=== PATIENT | female | born 1945 | race Caucasian/White ===

== ENCOUNTER 2016-08-26 10:33 | Emergency (ER) | payer MEDICARE, OTHER ==
--- NOTE | 2016-08-26 10:55 | EDM.PDOC ---
ED HPI Trauma - General Chief Complaint: Lower Extremity Injury/Pain Stated Complaint: RIGHT KNEE Time Seen by Provider: 08/26/16 10:39 Source: Reports: Patient History Limitations: Reports: No limitations - History of Present Illness INITIAL COMMENTS - FREE TEXT/NARRATIVE: History of present illness: [] Patient slipped on this no yesterday and landed on her right knee with pain, swelling and bruising. She woke up this morning with worsening pain and is difficult for her to walk. Her right knee has been replaced and she is concerned of potential damage. Patient has mild pain in her left knee and her right shoulder but states she has no difficulty with movement and does not want these extremities x-ray. Review of systems: As per history of present illness and below otherwise all systems reviewed and negative. Past medical history: As per history of present illness and as reviewed below otherwise noncontributory. Surgical history: As per history of present illness and as reviewed below otherwise noncontributory. Social history: No reported history of drug or alcohol abuse. Family history: As per history of present illness and as reviewed below otherwise noncontributory. Physical exam: General: Well developed, well nourished in NAD HEENT: Atraumatic, normocephalic, pupils reactive, negative for conjunctival pallor or scleral icterus, mucous membranes moist, throat clear, neck supple, nontender, trachea midline. Lungs: Clear to auscultation, breath sounds equal bilaterally, chest nontender. Heart: S1S2, regular, negative for clicks, rubs, or JVD. Abdomen: Soft, nondistended, nontender. Negative for masses or hepatosplenomegaly. Negative for costovertebral tenderness. Pelvis: Stable nontender. Genitourinary: Deferred. Rectal: Deferred. Extremities: Ecchymosis over the right knee with swelling. He is able to bend her knee and straighten it spontaneously in bed., negative for cords or calf pain. Neurovascular unremarkable. Neuro: Awake, alert, oriented. Cranial nerves II through XII unremarkable. Cerebellum unremarkable. Motor and sensory unremarkable throughout. Exam nonfocal. Diagnostics: [] X-ray of right knee negative for fracture Therapeutics: [] Patient declined any pain medication Impression: [] Right knee contusion Plan: [] Ice elevate followup PMD as needed Definitive disposition and diagnosis as appropriate pending reevaluation and review of above. Allergies/ADRs: Allergies egg Allergy (Mild, Verified 08/26/16 10:47) Nausea codeine Allergy (Verified 08/26/16 10:47) Rash diazepam [From Valium] Allergy (Verified 08/26/16 10:47) Rash morphine Allergy (Verified 08/26/16 10:47) Agitation Penicillins Allergy (Verified 08/26/16 10:47) Other Home Medications: Ambulatory Orders Omeprazole 40 mg PO DAILY 01/09/14 [Confirmed 08/26/16] Hydrocortisone 10 mg PO QPM 07/23/14 [Confirmed 08/26/16] Hydrocortisone 15 mg PO QAM 07/23/14 [Confirmed 08/26/16] Levothyroxine [Synthroid] 50 mcg PO ACBRK #30 tab 07/25/14 [Confirmed 08/26/16] Propranolol [Inderal] 40 mg PO DAILY 03/14/16 [Confirmed 08/26/16] Past Medical History HEENT History: Reports: None Cardiovascular History: Reports: Hypertension Other Cardiovascular History: hypotension Respiratory History: Reports: None Gastrointestinal History: Reports: None Genitourinary History: Reports: None [employer]IL[employer] History: Reports: Musculoskeletal History: Reports: None Neurological History: Reports: Cerebral aneurysms, Other (see below) Other Neuro History: brain tumor Psychiatric History: Reports: None 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, Hypothyroidism Hematologic History: Reports: None Immunologic History: Reports: None Oncologic (Cancer) History: Reports: Other (see below) Other Oncologic History: brain tumors, treated with radiation Dermatologic History: Reports: None - Infectious Disease History Infectious Disease History: Reports: Chicken pox, Measles, Mumps Other Infectious Disease History: childhood - Past Surgical History Cardiovascular Surgical History: Reports: None GI Surgical History: Reports: Appendectomy Female Surgical History: Reports: Hysterectomy, Other (see below) Other Female Surgeries/Procedures: right kidney removed Endocrine Surgical History: Reports: None Neurological Surgical History: Reports: None Social & Family History - Family History Family Medical History: Noncontributory - Tobacco Use Smoking Status *Q: Former Smoker Years of Tobacco use: 35 Used Tobacco, but Quit: Yes Month Tobacco Last Used: June Second Hand Smoke Exposure: No - Caffeine Use Caffeine Use: Reports: None - Recreational Drug Use Recreational Drug Use: No Review of Systems - Review of Systems Review Of Systems: See Below (See history of present illness) Trauma Exam - Physical Exam Exam: See Below (History of present illness) Course - Vital Signs Last Recorded V/S: Last Vital Signs Temp 37.1 C 08/26/16 10:43 Pulse 78 08/26/16 10:43 Resp 20 08/26/16 10:43 BP 133/68 08/26/16 10:43 Pulse Ox 96 08/26/16 10:43 - Orders/Labs/Meds Orders: Active Orders 24 hr Category Date Time Status Knee 3V Rt [CR] Stat Exams 08/26/16 10:51 Taken Departure - Departure Time of Disposition: 11:28 Disposition: Home, Self-Care 01 Condition: good Clinical Impression: Contusion of right knee Qualifiers: Encounter type: initial encounter Qualified Code(s): S80.01XA - Contusion of right knee, initial encounter Referrals: Gordy Ibarra MD [Primary Care Provider] - Forms: ED Department Discharge Additional Instructions: The following information is given to patients seen in the emergency department who are being discharged to home. This information is to outline your options for follow-up care. We provide all patients seen in our emergency department with a follow-up referral. The need for follow-up, as well as the timing and circumstances, are variable depending upon the specifics of your emergency department visit. If you don't have a primary care physician on staff, we will provide you with a referral. We always advise you to contact your personal physician following an emergency department visit to inform them of the circumstance of the visit and for follow-up with them and/or the need for any referrals to a consulting specialist. The emergency department will also refer you to a specialist when appropriate. This referral assures that you have the opportunity for follow-up care with a specialist. All of these measure are taken in an effort to provide you with optimal care, which includes your follow-up. Under all circumstances we always encourage you to contact your private physician who remains a resource for coordinating your care. When calling for follow-up care, please make the office aware that this follow-up is from your recent emergency room visit. If for any reason you are refused follow-up, please contact the [facility] Emergency Department at and asked to speak to the emergency department charge nurse. Motrin for pain ice and elevate followup her regular physician as needed [facility] [address] [place] [id number] - My Orders Last 24 Hours: My Active Orders 08/26/16 10:51 Knee 3V Rt [CR] Stat - Assessment/Plan Last 24 Hours: My Active Orders 08/26/16 10:51 Knee 3V Rt [CR] Stat
--- NOTE | 2016-08-26 11:31 | CR ---
EXAMINATION: Right knee HISTORY: Pain COMPARISON: None TECHNIQUE: 3 views FINDINGS/IMPRESSION: Right total knee hardware is demonstrated in good position and alignment. No fr acture, dislocation, or joint effusion identified. Bone mineralization appears osteopenic without ev idence of loosening.
[2016-08-26 11:46] VITALS: BP 141/79
== END 2016-08-26 11:42 | disposition home or self-care (01) ==
LOC: MW.ED 10:33
DX: S80.01XA Contusion of right knee, initial encounter (principal); Z88.5 Allergy status to narcotic agent; Z91.012 Allergy to eggs; Z88.0 Allergy status to penicillin; Z79.899 Other long term (current) drug therapy; I10 Essential (primary) hypertension; Z90.49 Acquired absence of other specified parts of digestive tract; Z90.710 Acquired absence of both cervix and uterus; Z87.891 Personal history of nicotine dependence; W18.40XA Slipping, tripping and stumbling without falling, unspecified, initial encounter
CPT/HCPCS: 73562-26-RT; 73562-RT; 99282; 99283

== ENCOUNTER → 2016-10-16 | Outpatient (CLI) | payer MEDICARE, OTHER ==
--- NOTE | 2016-10-16 17:14 | CR ---
EXAMINATION: Left knee HISTORY: Pain COMPARISON: 08/26/2016 TECHNIQUE: PA view FINDINGS/IMPRESSION: There is moderate joint space narrowing within the medial compartment. Osteophy te formation is noted. Bone mineralization appears mildly osteopenic without an acute osseous abnorm ality.
--- NOTE | 2016-10-17 04:32 | MOCE ---
SERVICE DATE: 10/16/2016 PATIENT #: [id number] #: NOT DICTATED CHIEF COMPLAINT: Left knee pain. HISTORY OF PRESENT ILLNESS: Patricia is a 71-year-old female, who is seen today in clinic with complaint of left knee pain. She states she has had a gradual increase in her left knee pain over the past few years. She cannot recall a specific injury. She does have a history of a prior right total knee arthroplasty performed many years ago by Dr. Metzger. She has done well following a right total knee arthroplasty. She has had some conservative treatment, including the use of Tylenol and tramadol on an as needed basis. She does occasionally use a cane or walker for assistance. She has not tried any bracing. She states she will not have any injections into her left knee due to injections in the right knee did not work. She complains of increased pain with activity. She is also having pain at rest. She states that the pain does wake her at night. She denies distal paralysis or paresthesias. PHYSICAL EXAMINATION: GENERAL: This is an alert, overweight female, who is sitting in wheelchair in minimal distress. HEENT: She does have poor dentition. Head is normocephalic, atraumatic. NECK: Supple. CHEST: Showed symmetrical excursions, unlabored. HEART: Regular rate. ABDOMEN: Benign. EXTREMITIES: Left lower extremity shows her to walk with an antalgic gait. She is able to climb on the exam table without assistance. She has no pain with rotation of her left hip. Her motion is symmetric to the contralateral side. She has no significant effusion or malalignment noted along the left knee. She has tenderness along the medial joint line. She has no lateral joint line tenderness. She has full extension with flexion to 110 degrees. She is limited by her soft tissue envelope. She is stable to varus and valgus stressing. She has a negative anterior drawer. Crepitus is noted along the patellofemoral joint. Anterior tib, EHL, gastroc strength is 5/5. Sensation is grossly intact throughout the lower extremity. Dorsalis pedis pulses 2+. IMAGING DATA: X-rays of the left knee were reviewed. This does show evidence of tricompartmental degenerative changes, which were most severe along the medial and patellofemoral joint with near [id number] joint findings. ASSESSMENT: Osteoarthritis, left knee, tricompartmental. PLAN: At this time, treatment options were discussed with the patient. She is presently quite frustrated with her pain and functional level. She has had a trial of conservative treatment, which has not been helpful. She has done well following her right total knee arthroplasty. At this time, I discussed the option of a total knee arthroplasty versus continued conservative treatment. She would like to hold off on surgical intervention unless it is absolutely needed. At this time, I recommended that we try a hinged knee brace to see if we can decrease some of her subjective feelings of instability. The patient [place] of town. She states that neither she nor her are able to drive. This would make it somewhat more difficult to perform a total knee arthroplasty and have her come for physical therapy. The patient would like to consider options. She was not scheduled for a followup appointment. She is advised to return to clinic or call if she has questions or concerns. /[id number]
== END ==
LOC: MW.CHORTHO 07:54
PROVIDERS: ATTEND Orthopaedic Surgery
DX: M25.562 Pain in left knee (principal); M25.762 Osteophyte, left knee; M85.862 Other specified disorders of bone density and structure, left lower leg; M17.12 Unilateral primary osteoarthritis, left knee
CPT/HCPCS: 73560-26-LT; 73560-LT; 99203

== ENCOUNTER 2016-12-18 13:02 | Emergency (ER) | payer MEDICARE, OTHER ==
--- NOTE | 2016-12-18 13:27 | EDM.PDOC ---
ED HPI GENERAL MEDICAL PROBLEM - General Chief Complaint: Back Pain or Injury Stated Complaint: AMBULANCE Time Seen by Provider: 12/18/16 13:18 Source of Information: Reports: Patient History Limitations: Reports: No Limitations - History of Present Illness INITIAL COMMENTS - FREE TEXT/NARRATIVE: History of present illness: [71-year-old female presenting with complaints of back pain. Patient indicates she had fallen a proximally month ago was seen by her PCP but now continues to have chronic low back pain with radiculopathy] Review of systems: As per history of present illness and below otherwise all systems reviewed and negative. Past medical history: As per history of present illness and as reviewed below otherwise noncontributory. Surgical history: As per history of present illness and as reviewed below otherwise noncontributory. Social history: No reported history of drug or alcohol abuse. Family history: As per history of present illness and as reviewed below otherwise noncontributory. Physical exam: HEENT: Atraumatic, normocephalic, pupils reactive, negative for conjunctival pallor or scleral icterus, mucous membranes moist, throat clear, neck supple, nontender, trachea midline. Lungs: Clear to auscultation, breath sounds equal bilaterally, chest nontender. Heart: S1S2, regular, negative for clicks, rubs, or JVD. Abdomen: Soft, nondistended, nontender. Negative for masses or hepatosplenomegaly. Negative for costovertebral tenderness. Pelvis: Stable nontender. Genitourinary: Deferred. Rectal: Deferred. Extremities: Atraumatic, negative for cords or calf pain. Neurovascular unremarkable. Neuro: Awake, alert, oriented. Cranial nerves II through XII unremarkable. Cerebellum unremarkable. Motor and sensory unremarkable throughout. Exam nonfocal. Global assessment is benign save the subjective complaint as noted in the history of present illness. Patient received Toradol in ambulance and has one kidney, and refuses opiates as she does like to make her feel. Diagnostics: [] Therapeutics: [Gabapentin, Norflex] Impression: [Low back pain] Plan: [Norflex and meloxicam] Definitive disposition and diagnosis as appropriate pending reevaluation and review of above. Lower Back Pain Score (Numeric/FACES): 5 - Related Data Allergies Allergy/AdvReac Type Severity Reaction Status Date / Time egg Allergy Mild Nausea Verified 12/18/16 13:10 codeine Allergy Rash Verified 12/18/16 13:10 diazepam [From Valium] Allergy Rash Verified 12/18/16 13:10 morphine Allergy Agitation Verified 12/18/16 13:10 Penicillins Allergy Other Verified 12/18/16 13:10 Home Meds: Home Meds Omeprazole 40 mg PO DAILY 01/09/14 [History] Hydrocortisone 10 mg PO QPM 07/23/14 [History] Hydrocortisone 15 mg PO QAM 07/23/14 [History] Levothyroxine [Synthroid] 50 mcg PO ACBRK #30 tab 07/25/14 [Rx] Propranolol [Inderal] 40 mg PO DAILY 03/14/16 [History] Calcium Carbonate [Calcium] 500 mg PO ASDIRECTED 12/18/16 [History] Meloxicam 7.5 mg PO BID #30 tablet 12/18/16 [Rx] Orphenadrine [Norflex] 100 mg PO BID #28 tab.er 12/18/16 [Rx] Vitamin B Complex 1 each PO DAILY 12/18/16 [History] traMADol HCl [Tramadol HCl] 1 tab PO ASDIRECTED 12/18/16 [History] Past Medical History HEENT History: Reports: None Cardiovascular History: Reports: Hypertension Other Cardiovascular History: hypotension Respiratory History: Reports: None Gastrointestinal History: Reports: None Genitourinary History: Reports: None 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: Musculoskeletal History: Reports: None Neurological History: Reports: Cerebral Aneurysms, Other (See Below) Other Neuro History: brain tumor Psychiatric History: Reports: None 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, Hypothyroidism Hematologic History: Reports: None Immunologic History: Reports: None Oncologic (Cancer) History: Reports: Other (See Below) Other Oncologic History: brain tumors, treated with radiation Dermatologic History: Reports: None - Infectious Disease History Infectious Disease History: Reports: Chicken Pox, Measles, Mumps Other Infectious Disease History: childhood - Past Surgical History Female Surgical History: Reports: Hysterectomy, Other (See Below) Social & Family History - Family History Family Medical History: Noncontributory - Tobacco Use Smoking Status *Q: Former Smoker Years of Tobacco use: 35 Used Tobacco, but Quit: Yes Month Tobacco Last Used: June Second Hand Smoke Exposure: No - Caffeine Use Caffeine Use: Reports: None - Recreational Drug Use Recreational Drug Use: No ED ROS GENERAL - Review of Systems Review Of Systems: See Below (See history of present illness) ED EXAM, GENERAL - Physical Exam Exam: See Below (The history of present illness) Course - Vital Signs Last Recorded V/S: Last Vital Signs Temp 36.4 C 12/18/16 13:14 Pulse 63 12/18/16 14:54 Resp 16 12/18/16 14:54 BP 179/90 H 12/18/16 14:54 Pulse Ox 96 12/18/16 14:54 - Orders/Labs/Meds Orders: Active Orders 24 hr Category Date Time Status Orphenadrine [Norflex] Med 12/18/16 14:45 Active 60 mg IM Q12H Medication Orders Orphenadrine Citrate (Norflex) 60 mg IM Q12H ABELINO Last Admin: 12/18/16 14:46 Dose: 60 mg Meds: Medications Generic Name Dose Route Start Last Admin Trade Name Freq PRN Reason Stop Dose Admin Orphenadrine Citrate 60 mg 12/18/16 14:45 12/18/16 14:46 Norflex IM 60 mg Q12H ABELINO Administration Discontinued Medications Generic Name Dose Route Start Last Admin Trade Name Freq PRN Reason Stop Dose Admin Gabapentin 300 mg 12/18/16 13:41 12/18/16 14:46 Neurontin PO 12/18/16 13:42 300 mg ONETIME ONE Administration Departure - Departure Time of Disposition: 15:30 Disposition: Home, Self-Care 01 Condition: Good Clinical Impression: Low back pain - Discharge Information Prescriptions: Meloxicam 7.5 mg PO BID #30 tablet Orphenadrine [Norflex] 100 mg PO BID #28 tab.er Additional Instructions: The following information is given to patients seen in the emergency department who are being discharged to home. This information is to outline your options for follow-up care. We provide all patients seen in our emergency department with a follow-up referral. The need for follow-up, as well as the timing and circumstances, are variable depending upon the specifics of your emergency department visit. If you don't have a primary care physician on staff, we will provide you with a referral. We always advise you to contact your personal physician following an emergency department visit to inform them of the circumstance of the visit and for follow-up with them and/or the need for any referrals to a consulting specialist. The emergency department will also refer you to a specialist when appropriate. This referral assures that you have the opportunity for follow-up care with a specialist. All of these measure are taken in an effort to provide you with optimal care, which includes your follow-up. Under all circumstances we always encourage you to contact your private physician who remains a resource for coordinating your care. When calling for follow-up care, please make the office aware that this follow-up is from your recent emergency room visit. If for any reason you are refused follow-up, please contact the [facility] Emergency Department at and asked to speak to the emergency department charge nurse. Take medication as directed Follow-up with PCP 1-2 days Return to ED as needed as discussed - My Orders Last 24 Hours: My Active Orders 12/18/16 14:45 Orphenadrine [Norflex] 60 mg IM Q12H - Assessment/Plan Last 24 Hours: My Active Orders 12/18/16 14:45 Orphenadrine [Norflex] 60 mg IM Q12H
[2016-12-18] MEDS ORDERED: Gabapentin 300 MG Cap PO ONE (13:41)
[2016-12-18 15:35] VITALS: BP 184/93
== END 2016-12-18 15:42 | disposition home or self-care (01) ==
LOC: MW.ED 13:02
DX: M54.5 Low back pain (principal); I10 Essential (primary) hypertension; E03.9 Hypothyroidism, unspecified; Z90.710 Acquired absence of both cervix and uterus; Z87.891 Personal history of nicotine dependence; Z79.899 Other long term (current) drug therapy; Z88.0 Allergy status to penicillin; Z88.5 Allergy status to narcotic agent; Z88.8 Allergy status to other drugs, medicaments and biological substances; Z91.012 Allergy to eggs
CPT/HCPCS: 96372; 99284; A9270; J2360; 99282

== ENCOUNTER 2017-01-04 17:03 | Emergency (ER) | payer MEDICARE, OTHER ==
[2017-01-04 17:14] VITALS: BP 174/77
--- NOTE | 2017-01-04 17:27 | EDM.PDOC ---
ED HPI GENERAL MEDICAL PROBLEM - General Chief Complaint: Lower Extremity Injury/Pain Stated Complaint: PAIN RT ANKLE Time Seen by Provider: 01/04/17 17:20 Source of Information: Reports: Patient History Limitations: Reports: No Limitations - History of Present Illness INITIAL COMMENTS - FREE TEXT/NARRATIVE: HISTORY AND PHYSICAL: History of present illness: [Patient comes to the emergency room complaining of right ankle pain. Pain is both medial and lateral worse medially. She was using her 's motorized wheelchair to perform some tasks around the house. The speed was set too high for patient and she continuously ran into objects around her house causing pain to her ankle. At 345 she hit some furniture in her home and has been unable to bear weight on her right ankle since that time. No lacerations. She denies numbness and tingling. She otherwise feels well and has no other complaints or concerns. Denies previous trauma. She has not taken any medications for her symptoms. Review of systems: As per history of present illness and below otherwise all systems reviewed and negative. Past medical history: As per history of present illness and as reviewed below otherwise noncontributory. Surgical history: As per history of present illness and as reviewed below otherwise noncontributory. Social history: No reported history of drug or alcohol abuse. Family history: As per history of present illness and as reviewed below otherwise noncontributory. Physical exam: HEENT: Atraumatic, normocephalic. Extremities: Mild swelling to medial and lateral malleoli. Mild tenderness with palpation over the medial malleolus. No acute deformity is appreciated. No ecchymosis or erythema. Dorsalis pedal pulse 2+ Neurovascular unremarkable. Neuro: Awake, alert, oriented. Motor and sensory unremarkable throughout. Exam nonfocal. Diagnostics: [Right ankle x-ray] Impression: [Right ankle pain] Plan: [Discussed with patient that ankle x-ray shows no fractures. Recommend rest ice and Santos wrap and [id number] analgesics. Follow-up with primary care. She is in agreement with today's plan.] Definitive disposition and diagnosis as appropriate pending reevaluation and review of above. Right Ankle Pain Score (Numeric/FACES): 10 - Related Data Allergies Allergy/AdvReac Type Severity Reaction Status Date / Time egg Allergy Mild Nausea Verified 01/04/17 17:11 codeine Allergy Rash Verified 01/04/17 17:11 diazepam [From Valium] Allergy Rash Verified 01/04/17 17:11 morphine Allergy Agitation Verified 01/04/17 17:11 Penicillins Allergy Other Verified 01/04/17 17:11 Home Meds: Home Meds Omeprazole 40 mg PO DAILY 01/09/14 [History] Hydrocortisone 10 mg PO QPM 07/23/14 [History] Hydrocortisone 15 mg PO QAM 07/23/14 [History] Levothyroxine [Synthroid] 50 mcg PO ACBRK #30 tab 07/25/14 [Rx] Propranolol [Inderal] 40 mg PO DAILY 03/14/16 [History] Calcium Carbonate [Calcium] 500 mg PO ASDIRECTED 12/18/16 [History] Meloxicam 7.5 mg PO BID #30 tablet 12/18/16 [Rx] Orphenadrine [Norflex] 100 mg PO BID #28 tab.er 12/18/16 [Rx] Vitamin B Complex 1 each PO DAILY 12/18/16 [History] traMADol HCl [Tramadol HCl] 1 tab PO ASDIRECTED 12/18/16 [History] Past Medical History HEENT History: Reports: Impaired Vision Cardiovascular History: Reports: Hypertension Other Cardiovascular History: hypotension Respiratory History: Reports: None Gastrointestinal History: Reports: None Genitourinary History: Reports: None 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: Musculoskeletal History: Reports: None Neurological History: Reports: Cerebral Aneurysms, Other (See Below) Other Neuro History: brain tumor Psychiatric History: Reports: None 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, Hypothyroidism Hematologic History: Reports: None Immunologic History: Reports: None Oncologic (Cancer) History: Reports: Other (See Below) Other Oncologic History: brain tumors, treated with radiation Dermatologic History: Reports: None - Infectious Disease History Infectious Disease History: Reports: Chicken Pox, Measles, Mumps Other Infectious Disease History: childhood - Past Surgical History Female Surgical History: Reports: Hysterectomy Social & Family History - Family History Family Medical History: Noncontributory - Tobacco Use Smoking Status *Q: Former Smoker Years of Tobacco use: 35 Used Tobacco, but Quit: Yes Month Tobacco Last Used: Lino Second Hand Smoke Exposure: No - Caffeine Use Caffeine Use: Reports: None - Recreational Drug Use Recreational Drug Use: No Review of Systems - Review of Systems Review Of Systems: ROS reveals no pertinent complaints other than HPI. ED EXAM, GENERAL - Physical Exam Exam: See Below Course - Vital Signs Last Recorded V/S: Last Vital Signs Temp 98.0 F 01/04/17 17:12 Pulse 88 01/04/17 17:12 Resp 16 01/04/17 17:12 BP 174/77 H 01/04/17 17:12 Pulse Ox 95 01/04/17 17:12 - Orders/Labs/Meds Orders: Active Orders 24 hr Category Date Time Status Ankle Min 3V Rt [CR] Stat Exams 01/04/17 17:22 Taken Departure - Departure Time of Disposition: 17:55 Disposition: Home, Self-Care 01 Condition: Good Clinical Impression: Right ankle pain Qualifiers: Chronicity: acute Qualified Code(s): M25.571 - Pain in right ankle and joints of right foot - Discharge Information Instructions: Ankle Pain Referrals: Gordy Ibarra MD [Primary Care Provider] - Forms: ED Department Discharge Additional Instructions: The following information is given to patients seen in the emergency department who are being discharged to home. This information is to outline your options for follow-up care. We provide all patients seen in our emergency department with a follow-up referral. The need for follow-up, as well as the timing and circumstances, are variable depending upon the specifics of your emergency department visit. If you don't have a primary care physician on staff, we will provide you with a referral. We always advise you to contact your personal physician following an emergency department visit to inform them of the circumstance of the visit and for follow-up with them and/or the need for any referrals to a consulting specialist. The emergency department will also refer you to a specialist when appropriate. This referral assures that you have the opportunity for follow-up care with a specialist. All of these measure are taken in an effort to provide you with optimal care, which includes your follow-up. Under all circumstances we always encourage you to contact your private physician who remains a resource for coordinating your care. When calling for follow-up care, please make the office aware that this follow-up is from your recent emergency room visit. If for any reason you are refused follow-up, please contact the [facility] emergency department at and asked to speak to the emergency department charge nurse. [facility] [address] [place] [id number] Follow-up with your primary care provider at the clinic listed above in 48-72 hours. Rest, ice, elevate. May wear an Santos wrap if it provides comfort. Return to ER as needed as discussed. - My Orders Last 24 Hours: My Active Orders 01/04/17 17:22 Ankle Min 3V Rt [CR] Stat - Assessment/Plan Last 24 Hours: My Active Orders 01/04/17 17:22 Ankle Min 3V Rt [CR] Stat
--- NOTE | 2017-01-05 15:06 | CR ---
EXAM DATE: 01/04/17 PATIENT'S AGE: 71 Patient: DEAN MCLEOD Facility: [place], [place] Site . Site : 1945 Study: XRay Extremity Right Ankle [id number]/23/2017 5:43:42 PM Ordering Physician: Doctor Lofton Final Report: HISTORY: Pain after twisting injury. Findings: Three views of the right ankle are provided. There are no findings for fracture or dislocation. The ankle joint space is normally maintained. Spurring changes are seen in the posterior calcaneus at the Achilles attachment without change compared to 11/19/2015. Impression: Negative study for fracture. Dictated by Flip Robertson MD @ Jan 04 2017 5:44PM (Electronic Signature) Report Signed by Proxy. RICHARD
== END 2017-01-04 18:10 | disposition home or self-care (01) ==
LOC: MW.ED 17:03
DX: M25.571 Pain in right ankle and joints of right foot (principal); I10 Essential (primary) hypertension; E03.9 Hypothyroidism, unspecified; Z88.0 Allergy status to penicillin; Z88.5 Allergy status to narcotic agent; Z91.012 Allergy to eggs; Z79.899 Other long term (current) drug therapy; Z90.710 Acquired absence of both cervix and uterus; Z87.891 Personal history of nicotine dependence
CPT/HCPCS: 73610-26-RT; 73610-RT; 99282; 99283

== ENCOUNTER 2017-09-14 14:00 | Observation (INO) | payer MEDICARE, OTHER ==
--- NOTE | 2017-09-14 16:30 | EDM.PDOC ---
ED HPI GENERAL MEDICAL PROBLEM - General Chief Complaint: ENT Problem Stated Complaint: SORE THROAT,COUGH Time Seen by Provider: 09/14/17 16:15 Source of Information: Reports: Patient History Limitations: Reports: No Limitations - History of Present Illness INITIAL COMMENTS - FREE TEXT/NARRATIVE: HISTORY AND PHYSICAL: History of present illness: [Comes to the emergency room accompanied by a family member. She complains of sore throat, cough and loose stools for the past 3 days. Her symptoms are gradually worsening. She feels increased fatigue today, and has felt feverish alternating with chills. Has a lot of wheezing and hacking cough. Cough is nonproductive. History of Gwinnett's disease, and acute renal failure. She follows regularly with Dr. Gordy Ibarra. Denies chest pain and difficulty breathing. No overt shortness of breath. Appetite is been diminished for 3 days. No vomiting or nausea. Stools have been looser than usual for 3 days but no blood in stools. Denies abdominal pain. No change to urination. She has not taken any medications for her symptoms.] Review of systems: As per history of present illness and below otherwise all systems reviewed and negative. Past medical history: As per history of present illness and as reviewed below otherwise noncontributory. Surgical history: As per history of present illness and as reviewed below otherwise noncontributory. Social history: No reported history of drug or alcohol abuse. Family history: As per history of present illness and as reviewed below otherwise noncontributory. Physical exam: Gen.: Well-developed well-nourished female laying comfortably on exam table sleeping soundly. HEENT: Atraumatic, normocephalic. Wears glasses. Oral mucous membranes are pink and moist. No tonsillar swelling erythema or exudate. Neck supple no lymphadenopathy. Lungs: Wheezing is appreciated throughout all lung crespo.. Heart: S1S2, regular, negative for clicks, rubs, or JVD. Abdomen: Soft, nondistended, nontender. Negative for masses or hepatosplenomegaly. Negative for costovertebral tenderness. Pelvis: Stable nontender. Genitourinary: Deferred. Rectal: Deferred. Extremities: Atraumatic, negative for cords or calf pain. Neurovascular unremarkable. Neuro: Awake, alert, oriented. Cranial nerves II through XII unremarkable. Cerebellum unremarkable. Motor and sensory unremarkable throughout. Exam nonfocal. Diagnostics: [CBC, CMP, UA, lactate, CXR] Therapeutics: [LR x 1 liter, DuoNeb] Impression: [Hypoxia Wheezing] Plan: [CXR is clear. CBC shows Hgb of 11.4, which is stable for patient. WBC 8.88. Lactate 0.6. BUN 33, creatinine 2.7. Kidney function is stable. Calcium 8.3. While she is in the ER, her wheezing increases and she becomes hypoxic with O2 sat of 88% on room air. Sat increases to 95% on 2L of O2. She feels thirsty and dehydrated. LR 1000mL is started at 250mL/hour. Patient's condition is reviewed w/ Dr. Dugan who agrees to accept patient for observation. ] Definitive disposition and diagnosis as appropriate pending reevaluation and review of above. Abdomen Pain Score (Numeric/FACES): 7 - Related Data Allergies Allergy/AdvReac Type Severity Reaction Status Date / Time egg Allergy Mild Nausea Verified 09/14/17 14:59 codeine Allergy Rash Verified 09/14/17 14:59 diazepam [From Valium] Allergy Rash Verified 09/14/17 14:59 morphine Allergy Agitation Verified 09/14/17 14:59 Penicillins Allergy Other Verified 09/14/17 14:59 Home Meds: Home Meds Omeprazole 40 mg PO DAILY 01/09/14 [History] Hydrocortisone 10 mg PO QPM 07/23/14 [History] Hydrocortisone 15 mg PO QAM 07/23/14 [History] Propranolol [Inderal] 40 mg PO DAILY 03/14/16 [History] Calcium Carbonate [Calcium] 500 mg PO ASDIRECTED 12/18/16 [History] Vitamin B Complex 1 each PO DAILY 12/18/16 [History] traMADol HCl [Tramadol HCl] 1 tab PO ASDIRECTED 12/18/16 [History] Levothyroxine [Synthroid] 75 mcg PO ACBRK 09/14/17 [History] Past Medical History HEENT History: Reports: Impaired Vision Cardiovascular History: Reports: Hypertension Other Cardiovascular History: hypotension Respiratory History: Reports: SOB Gastrointestinal History: Reports: None Genitourinary History: Reports: None 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: Musculoskeletal History: Reports: None Neurological History: Reports: Cerebral Aneurysms, CVA, Other (See Below) Other Neuro History: brain tumor Psychiatric History: Reports: None 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, Hypothyroidism Hematologic History: Reports: None Immunologic History: Reports: None Oncologic (Cancer) History: Reports: Other (See Below) Other Oncologic History: brain tumors, treated with radiation Dermatologic History: Reports: None - Infectious Disease History Infectious Disease History: Reports: Chicken Pox, Measles, Mumps Other Infectious Disease History: childhood - Past Surgical History HEENT Surgical History: Reports: Other (See Below) Other HEENT Surgeries/Procedures: benign brain tumors removed in Female Surgical History: Reports: Hysterectomy, Nephrectomy Other Female Surgeries/Procedures: only one kidney Social & Family History - Family History Family Medical History: Noncontributory - Tobacco Use Smoking Status *Q: Former Smoker Years of Tobacco use: 32 Packs/Tins Daily: 0.3 Used Tobacco, but Quit: Yes Month/Year Tobacco Last Used: Second Hand Smoke Exposure: No - Caffeine Use Caffeine Use: Reports: Coffee, Tea - Recreational Drug Use Recreational Drug Use: No ED ROS ENT - Review of Systems Review Of Systems: ROS reveals no pertinent complaints other than HPI. ED EXAM, ENT - Physical Exam Exam: See Below Course - Vital Signs Last Recorded V/S: Last Vital Signs Temp 97.6 F 09/14/17 18:15 Pulse 69 09/14/17 18:35 Resp 20 09/14/17 18:35 BP 119/70 09/14/17 18:35 Pulse Ox 97 09/14/17 18:35 - Orders/Labs/Meds Orders: Active Orders 24 hr Category Date Time Status Patient Status [ADT] Stat ADT 09/14/17 18:48 Active RT Aerosol Therapy [RC] ASDIRECTED Care 09/14/17 18:21 Active Chest 2V [CR] Stat Exams 09/14/17 16:25 Taken UA W/MICROSCOPIC [URIN] Stat Lab 09/14/17 18:06 Ordered Lactated Ringers [Ringers, Lactated] 1,000 ml Med 09/14/17 18:15 Active IV .BOLUS Medication Orders Lactated Ringer's (Ringers, Lactated) 1,000 mls @ 999 mls/hr IV .BOLUS ABELINO Last Admin: 09/14/17 18:12 Dose: 999 mls/hr Labs: Laboratory Tests 09/14/17 09/14/17 09/14/17 Range/Units 15:58 15:58 15:58 WBC 8.88 (4.0-11.0) K/uL RBC 3.79 L (4.30-5.90) M/uL Hgb 11.4 L (12.0-16.0) g/dL Hct 37.3 (36.0-46.0) % MCV 98.4 H (80.0-98.0) fL MCH 30.1 (27.0-32.0) pg MCHC 30.6 L (31.0-37.0) g/dL RDW Std Deviation 64.6 H (28.0-62.0) fl RDW Coeff of Sandrine 18 H (11.0-15.0) % Plt Count 233 (150-400) K/uL MPV 9.70 (7.40-12.00) fL Neut % (Auto) 64.8 (48.0-80.0) % Lymph % (Auto) 23.3 (16.0-40.0) % Montgomery % (Auto) 10.9 (0.0-15.0) % Eos % (Auto) 0.8 (0.0-7.0) % Baso % (Auto) 0.2 (0.0-1.5) % Neut # (Auto) 5.8 H (1.4-5.7) K/uL Lymph # (Auto) 2.1 (0.6-2.4) K/uL Montgomery # (Auto) 1.0 H (0.0-0.8) K/uL Eos # (Auto) 0.1 (0.0-0.7) K/uL Baso # (Auto) 0.0 (0.0-0.1) K/uL Nucleated RBC % 0.0 /100WBC Nucleated RBCs # 0 K/uL Lactate 0.6 (0.20-2.00) mmol/L Sodium 140 (136-145) mmol/L Potassium 4.7 (3.5-5.1) mmol/L Chloride 103 (98-107) mmol/L Carbon Dioxide 29.5 (21.0-32.0) mmol/L BUN 33 H (7.0-18.0) mg/dL Creatinine 2.7 H (0.6-1.0) mg/dL Est Cr Clr Drug Dosing 15.12 mL/min Estimated GFR (MDRD) 17.2 ml/min Glucose 91 (74-106) mg/dL Calcium 8.3 L (8.5-10.1) mg/dL Total Bilirubin 0.3 (0.2-1.0) mg/dL AST 33 (15-37) IU/L ALT 36 (14-63) IU/L Alkaline Phosphatase 85 (46-116) U/L Total Protein 6.9 (6.4-8.2) g/dL Albumin 3.2 L (3.4-5.0) g/dL Globulin 3.7 H (2.0-3.5) g/dL Albumin/Globulin Ratio 0.9 L (1.3-2.8) Urine Color Urine Appearance Urine pH (5.0-8.0) Ur Specific [place] (1.001-1.035) Urine Protein (NEGATIVE) mg/dL Urine Glucose (UA) (NEGATIVE) mg/dL Urine Ketones (NEGATIVE) mg/dL Urine Occult Blood (NEGATIVE) Urine Nitrite (NEGATIVE) Urine Bilirubin (NEGATIVE) Urine Urobilinogen (<2.0) EU/dL Ur Leukocyte Esterase (NEGATIVE) Urine RBC (0-2/HPF) Urine WBC (0-5/HPF) Ur Epithelial Cells (NONE-FEW) Urine Bacteria (NEGATIVE) Hyaline Casts (0-2/LPF) Fine Granular Casts (NEGATIVE) Urine Mucus (NONE-MOD) 09/14/17 Range/Units 18:06 WBC (4.0-11.0) K/uL RBC (4.30-5.90) M/uL Hgb (12.0-16.0) g/dL Hct (36.0-46.0) % MCV (80.0-98.0) fL MCH (27.0-32.0) pg MCHC (31.0-37.0) g/dL RDW Std Deviation (28.0-62.0) fl RDW Coeff of Sandrine (11.0-15.0) % Plt Count (150-400) K/uL MPV (7.40-12.00) fL Neut % (Auto) (48.0-80.0) % Lymph % (Auto) (16.0-40.0) % Montgomery % (Auto) (0.0-15.0) % Eos % (Auto) (0.0-7.0) % Baso % (Auto) (0.0-1.5) % Neut # (Auto) (1.4-5.7) K/uL Lymph # (Auto) (0.6-2.4) K/uL Montgomery # (Auto) (0.0-0.8) K/uL Eos # (Auto) (0.0-0.7) K/uL Baso # (Auto) (0.0-0.1) K/uL Nucleated RBC % /100WBC Nucleated RBCs # K/uL Lactate (0.20-2.00) mmol/L Sodium (136-145) mmol/L Potassium (3.5-5.1) mmol/L Chloride (98-107) mmol/L Carbon Dioxide (21.0-32.0) mmol/L BUN (7.0-18.0) mg/dL Creatinine (0.6-1.0) mg/dL Est Cr Clr Drug Dosing mL/min Estimated GFR (MDRD) ml/min Glucose (74-106) mg/dL Calcium (8.5-10.1) mg/dL Total Bilirubin (0.2-1.0) mg/dL AST (15-37) IU/L ALT (14-63) IU/L Alkaline Phosphatase (46-116) U/L Total Protein (6.4-8.2) g/dL Albumin (3.4-5.0) g/dL Globulin (2.0-3.5) g/dL Albumin/Globulin Ratio (1.3-2.8) Urine Color YELLOW Urine Appearance SLT CLOUDY Urine pH 5.5 (5.0-8.0) Ur Specific [place] 1.025 (1.001-1.035) Urine Protein 30 (NEGATIVE) mg/dL Urine Glucose (UA) NEGATIVE (NEGATIVE) mg/dL Urine Ketones NEGATIVE (NEGATIVE) mg/dL Urine Occult Blood NEGATIVE (NEGATIVE) Urine Nitrite NEGATIVE (NEGATIVE) Urine Bilirubin NEGATIVE (NEGATIVE) Urine Urobilinogen 0.2 (<2.0) EU/dL Ur Leukocyte Esterase TRACE (NEGATIVE) Urine RBC 0-2 (0-2/HPF) Urine WBC 4-7 (0-5/HPF) Ur Epithelial Cells FEW (NONE-FEW) Urine Bacteria 1+ H (NEGATIVE) Hyaline Casts 0-2 (0-2/LPF) Fine Granular Casts 0-1 (NEGATIVE) Urine Mucus MODERATE (NONE-MOD) Meds: Medications Generic Name Dose Route Start Last Admin Trade Name Duy PRN Reason Stop Dose Admin Lactated Ringer's 1,000 mls @ 999 mls/hr 09/14/17 18:15 09/14/17 18:12 Ringers, Lactated IV 999 mls/hr .BOLUS ABELINO Administration Discontinued Medications Generic Name Dose Route Start Last Admin Trade Name Duy PRN Reason Stop Dose Admin Albuterol/Ipratropium 3 ml 09/14/17 18:21 09/14/17 18:28 Duoneb 3.0-0.5 Mg/3 Ml NEB 09/14/17 18:22 3 ml ONETIME ONE Administration Departure - Departure Time of Disposition: 18:48 Disposition: Refer to Observation Condition: Good Clinical Impression: Hypoxia - Discharge Information Referrals: PCP,None [Primary Care Provider] - Forms: ED Department Discharge - My Orders Last 24 Hours: My Active Orders 09/14/17 16:25 Chest 2V [CR] Stat 09/14/17 18:06 UA W/MICROSCOPIC [URIN] Stat 09/14/17 18:15 Lactated Ringers [Ringers, Lactated] 1,000 ml IV .BOLUS 09/14/17 18:21 RT Aerosol Therapy [RC] ASDIRECTED 09/14/17 18:48 Patient Status [ADT] Stat - Assessment/Plan Last 24 Hours: My Active Orders 09/14/17 16:25 Chest 2V [CR] Stat 09/14/17 18:06 UA W/MICROSCOPIC [URIN] Stat 09/14/17 18:15 Lactated Ringers [Ringers, Lactated] 1,000 ml IV .BOLUS 09/14/17 18:21 RT Aerosol Therapy [RC] ASDIRECTED 09/14/17 18:48 Patient Status [ADT] Stat
[2017-09-14] MEDS: Lactated Ringers 1,000 ML IV SCH (18:12)
[2017-09-14] MEDS ORDERED: Albuterol/Ipratropium 3.0-0.5 MG/3 ML Neb Soln NEB ONE (18:21)
[2017-09-14] MEDS ORDERED: Sodium Chloride 0.9% 2.5 ML Syringe FLUSH PRN (19:32)
[2017-09-14] MEDS ORDERED: Sodium Chloride 0.9% 10 ML Syringe FLUSH PRN (19:32)
[2017-09-14] MEDS ORDERED: Lactated Ringers 1,000 ML IV SCH (19:45)
[2017-09-14] MEDS ORDERED: Enoxaparin 40 MG/0.4 ML Syringe SUBCUT SCH (19:45)
[2017-09-14] MEDS ORDERED: cefTRIAXone 1,000 MG in Sodium Chloride 0.9% 50 ML IV ONE (19:50)
--- NOTE | 2017-09-14 19:57 | PCM.HP ---
H&P History of Present Illness - General Date of Service: 09/14/17 Admit Problem/Dx: Admission Diagnosis/Problem Admission Diagnosis/Problem Hypoxia Source of Information: Patient - History of Present Illness Initial Comments - Free Text/Narative: This is a 72-year-old female who is being admitted secondary to hypoxia after coming into the ER with a 3 day history of cough, shortness of breath in particular at night where she states that she wakes up suddenly with episodes of not being able to breathe and shortness of breath for the past couple of days. Patient was assessed in the ER and was about to be discharged when she suddenly became hypoxic with oxygen saturation dropping to 85%, patient was given duo nebs and placed on 2 L of oxygen but still continue to have bilateral wheezing all throughout the lung crespo and there was concerns for possible hypoxia requiring inpatient evaluation and support. Patient does have a significant past medical history of [place]'s disease for which she is taking hydrocortisone, she also has hypothyroidism for which she has levothyroxine, he should also has medications for hypertension. Onset of Symptoms: Reports: Gradual Abdomen Pain Score (Numeric/FACES): 7 - Related Data Allergies/Adverse Reactions: Allergies Allergy/AdvReac Type Severity Reaction Status Date / Time egg Allergy Mild Nausea Verified 09/14/17 14:59 codeine Allergy Rash Verified 09/14/17 14:59 diazepam [From Valium] Allergy Rash Verified 09/14/17 14:59 morphine Allergy Agitation Verified 09/14/17 14:59 Penicillins Allergy Other Verified 09/14/17 14:59 Home Medications: Home Meds Omeprazole 40 mg PO DAILY 01/09/14 [History] Hydrocortisone 10 mg PO QPM 07/23/14 [History] Hydrocortisone 15 mg PO QAM 07/23/14 [History] Propranolol [Inderal] 40 mg PO DAILY 03/14/16 [History] Calcium Carbonate [Calcium] 500 mg PO ASDIRECTED 12/18/16 [History] Vitamin B Complex 1 each PO DAILY 12/18/16 [History] traMADol HCl [Tramadol HCl] 1 tab PO ASDIRECTED 12/18/16 [History] Levothyroxine [Synthroid] 75 mcg PO ACBRK 09/14/17 [History] Past Medical History HEENT History: Reports: Impaired Vision Cardiovascular History: Reports: Hypertension Other Cardiovascular History: hypotension Respiratory History: Reports: SOB Gastrointestinal History: Reports: None Genitourinary History: Reports: None HEAD HOST/HOSTESS History: Reports: Musculoskeletal History: Reports: None Neurological History: Reports: Cerebral Aneurysms, CVA, Other (See Below) Other Neuro History: brain tumor Psychiatric History: Reports: None Endocrine/Metabolic History: Reports: [place]'s Disease, Hypothyroidism Hematologic History: Reports: None Immunologic History: Reports: None Oncologic (Cancer) History: Reports: Other (See Below) Other Oncologic History: brain tumors, treated with radiation Dermatologic History: Reports: None - Infectious Disease History Infectious Disease History: Reports: Chicken Pox, Measles, Mumps Other Infectious Disease History: childhood - Past Surgical History HEENT Surgical History: Reports: Other (See Below) Other HEENT Surgeries/Procedures: benign brain tumors removed in Female Surgical History: Reports: Hysterectomy, Nephrectomy Other Female Surgeries/Procedures: only one kidney Social & Family History - Family History Family Medical History: Noncontributory - Tobacco Use Smoking Status *Q: Former Smoker Years of Tobacco use: 32 Packs/Tins Daily: 0.3 Used Tobacco, but Quit: Yes Month/Year Tobacco Last Used: Second Hand Smoke Exposure: No - Caffeine Use Caffeine Use: Reports: Coffee, Tea - Recreational Drug Use Recreational Drug Use: No H&P Review of Systems - Review of Systems: Review Of Systems: ROS reveals no pertinent complaints other than HPI. Exam - Exam Exam: See Below - Vital Signs Vital Signs: Last Vital Signs Temp 36.4 C 09/14/17 18:15 Pulse 69 09/14/17 18:35 Resp 20 09/14/17 18:35 BP 119/70 09/14/17 18:35 Pulse Ox 97 09/14/17 18:35 Weight: 106 kg - Exam Quality Assessment: Supplemental Oxygen General: Alert, Oriented, Cooperative, Mild Distress Lungs: Wheezing Cardiovascular: Regular Rhythm, Tachycardia GI/Abdominal Exam: Normal Bowel Sounds, Soft, Non-Tender Extremities: Pedal Edema - Patient Data Lab Results Last 24 hrs: Laboratory Results - last 24 hr 09/14/17 09/14/17 09/14/17 Range/Units 15:58 15:58 15:58 WBC 8.88 (4.0-11.0) K/uL RBC 3.79 L (4.30-5.90) M/uL Hgb 11.4 L (12.0-16.0) g/dL Hct 37.3 (36.0-46.0) % MCV 98.4 H (80.0-98.0) fL MCH 30.1 (27.0-32.0) pg MCHC 30.6 L (31.0-37.0) g/dL RDW Std Deviation 64.6 H (28.0-62.0) fl RDW Coeff of Sandrine 18 H (11.0-15.0) % Plt Count 233 (150-400) K/uL MPV 9.70 (7.40-12.00) fL Neut % (Auto) 64.8 (48.0-80.0) % Lymph % (Auto) 23.3 (16.0-40.0) % [place] % (Auto) 10.9 (0.0-15.0) % Eos % (Auto) 0.8 (0.0-7.0) % Baso % (Auto) 0.2 (0.0-1.5) % Neut # (Auto) 5.8 H (1.4-5.7) K/uL Lymph # (Auto) 2.1 (0.6-2.4) K/uL [place] # (Auto) 1.0 H (0.0-0.8) K/uL Eos # (Auto) 0.1 (0.0-0.7) K/uL Baso # (Auto) 0.0 (0.0-0.1) K/uL Nucleated RBC % 0.0 /100WBC Nucleated RBCs # 0 K/uL Lactate 0.6 (0.20-2.00) mmol/L Sodium 140 (136-145) mmol/L Potassium 4.7 (3.5-5.1) mmol/L Chloride 103 (98-107) mmol/L Carbon Dioxide 29.5 (21.0-32.0) mmol/L BUN 33 H (7.0-18.0) mg/dL Creatinine 2.7 H (0.6-1.0) mg/dL Est Cr Clr Drug Dosing 15.12 mL/min Estimated GFR (MDRD) 17.2 ml/min Glucose 91 (74-106) mg/dL Calcium 8.3 L (8.5-10.1) mg/dL Total Bilirubin 0.3 (0.2-1.0) mg/dL AST 33 (15-37) IU/L ALT 36 (14-63) IU/L Alkaline Phosphatase 85 (46-116) U/L Total Protein 6.9 (6.4-8.2) g/dL Albumin 3.2 L (3.4-5.0) g/dL Globulin 3.7 H (2.0-3.5) g/dL Albumin/Globulin Ratio 0.9 L (1.3-2.8) Urine Color Urine Appearance Urine pH (5.0-8.0) Ur Specific [place] (1.001-1.035) Urine Protein (NEGATIVE) mg/dL Urine Glucose (UA) (NEGATIVE) mg/dL Urine Ketones (NEGATIVE) mg/dL Urine Occult Blood (NEGATIVE) Urine Nitrite (NEGATIVE) Urine Bilirubin (NEGATIVE) Urine Urobilinogen (<2.0) EU/dL Ur Leukocyte Esterase (NEGATIVE) Urine RBC (0-2/HPF) Urine WBC (0-5/HPF) Ur Epithelial Cells (NONE-FEW) Urine Bacteria (NEGATIVE) Hyaline Casts (0-2/LPF) Fine Granular Casts (NEGATIVE) Urine Mucus (NONE-MOD) 09/14/17 Range/Units 18:06 WBC (4.0-11.0) K/uL RBC (4.30-5.90) M/uL Hgb (12.0-16.0) g/dL Hct (36.0-46.0) % MCV (80.0-98.0) fL MCH (27.0-32.0) pg MCHC (31.0-37.0) g/dL RDW Std Deviation (28.0-62.0) fl RDW Coeff of [place] (11.0-15.0) % Plt Count (150-400) K/uL MPV (7.40-12.00) fL Neut % (Auto) (48.0-80.0) % Lymph % (Auto) (16.0-40.0) % [place] % (Auto) (0.0-15.0) % Eos % (Auto) (0.0-7.0) % Baso % (Auto) (0.0-1.5) % Neut # (Auto) (1.4-5.7) K/uL Lymph # (Auto) (0.6-2.4) K/uL [place] # (Auto) (0.0-0.8) K/uL Eos # (Auto) (0.0-0.7) K/uL Baso # (Auto) (0.0-0.1) K/uL Nucleated RBC % /100WBC Nucleated RBCs # K/uL Lactate (0.20-2.00) mmol/L Sodium (136-145) mmol/L Potassium (3.5-5.1) mmol/L Chloride (98-107) mmol/L Carbon Dioxide (21.0-32.0) mmol/L BUN (7.0-18.0) mg/dL Creatinine (0.6-1.0) mg/dL Est Cr Clr Drug Dosing mL/min Estimated GFR (MDRD) ml/min Glucose (74-106) mg/dL Calcium (8.5-10.1) mg/dL Total Bilirubin (0.2-1.0) mg/dL AST (15-37) IU/L ALT (14-63) IU/L Alkaline Phosphatase (46-116) U/L Total Protein (6.4-8.2) g/dL Albumin (3.4-5.0) g/dL Globulin (2.0-3.5) g/dL Albumin/Globulin Ratio (1.3-2.8) Urine Color YELLOW Urine Appearance SLT CLOUDY Urine pH 5.5 (5.0-8.0) Ur Specific [place] 1.025 (1.001-1.035) Urine Protein 30 (NEGATIVE) mg/dL Urine Glucose (UA) NEGATIVE (NEGATIVE) mg/dL Urine Ketones NEGATIVE (NEGATIVE) mg/dL Urine Occult Blood NEGATIVE (NEGATIVE) Urine Nitrite NEGATIVE (NEGATIVE) Urine Bilirubin NEGATIVE (NEGATIVE) Urine Urobilinogen 0.2 (<2.0) EU/dL Ur Leukocyte Esterase TRACE (NEGATIVE) Urine RBC 0-2 (0-2/HPF) Urine WBC 4-7 (0-5/HPF) Ur Epithelial Cells FEW (NONE-FEW) Urine Bacteria 1+ H (NEGATIVE) Hyaline Casts 0-2 (0-2/LPF) Fine Granular Casts 0-1 (NEGATIVE) Urine Mucus MODERATE (NONE-MOD) Result Diagrams: 09/14/17 15:58 09/14/17 15:58 Problem List Initiated/Reviewed/Updated: Yes Orders Last 24hrs: Active Orders 24 hr Category Date Time Status Patient Status [ADT] Stat ADT 09/14/17 18:48 Active Height and Weight [RC] UPON Care 09/14/17 19:32 Active Intake and Output [RC] QSHIFT Care 09/14/17 19:32 Active Notify Provider Vital Signs [RC] ASDIRECTED Care 09/14/17 19:32 Active Oxygen Therapy [RC] PRN Care 09/14/17 19:32 Active Pulse Oximetry [RC] CONTINUOUS Care 09/14/17 19:32 Active RT Aerosol Therapy [RC] ASDIRECTED Care 09/14/17 18:21 Active RT Aerosol Therapy [RC] ASDIRECTED Care 09/14/17 19:41 Active Up With Assistance [RC] ASDIRECTED Care 09/14/17 19:32 Active VTE/DVT Education [RC] PER UNIT ROUTINE Care 09/14/17 19:32 Active Vital Signs [RC] Q4H Care 09/14/17 19:32 Active Regular Diet [DIET] Diet 09/14/17 Breakfast Active Chest 2V [CR] Stat Exams 09/14/17 16:25 Taken CBC WITH AUTO DIFF [HEME] AM Lab 09/15/17 05:11 Ordered COMPREHENSIVE METABOLIC PN,CMP [CHEM] AM Lab 09/15/17 05:11 Ordered CULTURE URINE [RM] Stat Lab 09/14/17 18:06 Received UA W/MICROSCOPIC [URIN] Stat Lab 09/14/17 18:06 Ordered Albuterol/Ipratropium [DuoNeb 3.0-0.5 MG/3 ML] Med 09/14/17 22:00 Active 3 ml NEB Q4HRRT Enoxaparin [Lovenox] Med 09/14/17 19:45 Active 40 mg SUBCUT Q24H Hydrocortisone Med 09/15/17 18:00 Active 10 mg PO QPM Hydrocortisone Med 09/15/17 09:00 Active 15 mg PO QAM Lactated Ringers [Ringers, Lactated] 1,000 ml Med 09/14/17 18:15 Active IV .BOLUS Lactated Ringers [Ringers, Lactated] 1,000 ml Med 09/14/17 19:45 Active IV ASDIRECTED Levothyroxine [Synthroid] Med 09/15/17 07:30 Active 75 mcg PO ACBRK Sodium Chloride 0.9% [Saline Flush] Med 09/14/17 19:32 Active 10 ml FLUSH ASDIRECTED PRN Sodium Chloride 0.9% [Saline Flush] Med 09/14/17 19:32 Active 2.5 ml FLUSH ASDIRECTED PRN cefTRIAXone [Rocephin] 1,000 mg Med 09/14/17 19:50 Active Sodium Chloride 0.9% [Normal Saline] 50 ml IV Q24H Peripheral IV Insertion Adult [OM.PC] Routine Oth 09/14/17 19:32 Ordered Saline Lock Insert [OM.PC] Routine Oth 09/14/17 19:32 Ordered Sequential Compression Device [OM.PC] Per Unit Routine Oth 09/14/17 19:32 Ordered Medication Orders Albuterol/Ipratropium (Duoneb 3.0-0.5 Mg/3 Ml) 3 ml NEB Q4HRRT ABELINO Enoxaparin Sodium (Lovenox) 40 mg SUBCUT Q24H ABELINO Lactated Ringer's (Ringers, Lactated) 1,000 mls @ 999 mls/hr IV .BOLUS ABELINO Last Admin: 09/14/17 18:12 Dose: 999 mls/hr Ceftriaxone Sodium 1,000 mg/ (Sodium Chloride) 50 mls @ 200 mls/hr IV Q24H ONE Stop: 09/14/17 20:04 Lactated Ringer's (Ringers, Lactated) 1,000 mls @ 125 mls/hr IV ASDIRECTED ABELINO Levothyroxine Sodium (Synthroid) 75 mcg PO ACBRK ABELINO Non-Formulary Medication (Hydrocortisone) 10 mg PO QPM ABELINO Non-Formulary Medication (Hydrocortisone) 15 mg PO QAM ABELINO Sodium Chloride (Saline Flush) 10 ml FLUSH ASDIRECTED PRN PRN Reason: Keep Vein Open Sodium Chloride (Saline Flush) 2.5 ml FLUSH ASDIRECTED PRN PRN Reason: Keep Vein Open Assessment/Plan Comment:: This is a 72-year-old female that is being admitted secondary to wheezing, shortness of breath, hypoxia despite DuoNeb therapy and O2 intervention. Patient does not have a previous medical history of respiratory dysfunction however she does appear to have signs and symptoms of possible MERON. Patient is mildly obese and does state that she has episodes of waking up at night without the ability to breathe. Patient also has a significant medical history of Melvin's disease, hypothyroidism, hypertension. Assessment/plan For the patient's respiratory symptoms I shall be placing the patient on DuoNeb therapy and continuing with the patient's hydrocortisone oral dose that she is taking for Melvin's disease as that should also cover adequately from a steroid standpoint. Shall monitor the patient and reassess in the a.m. to see if the respiratory status improves. Patient didn't appear to have a mildly dirty UA as such the patient has been given 1 dose of Rocephin and a urine culture has been placed and we shall reassess in the morning. Patient is admitted under LESS than 2 midnights.
[2017-09-14] MEDS ORDERED: Propranolol 20 MG Tab PO SCH (21:56)
[2017-09-14] MEDS: Albuterol/Ipratropium 3.0-0.5 MG/3 ML Neb Soln NEB SCH (22:50)
[2017-09-15] MEDS: Lactated Ringers 1,000 ML IV SCH (02:15)
[2017-09-15] MEDS: Albuterol/Ipratropium 3.0-0.5 MG/3 ML Neb Soln NEB SCH ×4 (02:26→16:05)
[2017-09-15] MEDS ORDERED: Levothyroxine 50 MCG Tab PO SCH (07:30)
[2017-09-15] MEDS ORDERED: traMADol 50 MG Tab PO PRN (08:22)
[2017-09-15] MEDS ORDERED: Hydrocortisone 20 MG Tab PO SCH ×2 (09:00→18:00)
--- NOTE | 2017-09-15 09:35 | CR ---
EXAM DATE: 09/14/17 PATIENT'S AGE: 72 Patient: DEAN MCLEOD Facility: [place], [place] Site . Site : 1945 Study: XRay Chest [id number]/[id number] 5:19:42 PM Ordering Physician: Doctor Lofton Final Report: INDICATION: cough, chest pain, sob - all x3 days TECHNIQUE: Chest 2 views. COMPARISON: 03/14/16 FINDINGS: Cardiovascular and mediastinum: Heart size and vasculature are normal in caliber and appearance. Mediastinum is within normal limits. Lungs and pleural spaces: Lungs are clear. No sign of infiltrate or mass. No sign of pleural effusion. No pneumothorax. Bones and soft tissues: No significant findings. IMPRESSION: Unremarkable chest. Dictated by: Cruz Azar MD @ 09/14/2017 17:50:57 (Electronic Signature) Report Signed by Proxy. RICHARD
[2017-09-15 13:21] VITALS: BP 119/67
--- NOTE | 2017-09-15 13:35 | PCM.DCSUM1 ---
Discharge Summary - Hospital Course HPI Initial Comments: Discharge Summary Date of admission: 09/14/2017 Date of discharge: 09/15/2017 Admitting diagnosis: #1. Wheezing, oxygen desaturation to 84% on room air secondary to Acute hypoxia requiring oxygen support and medical intervention #2. Urinary analysis indicating possible UTI, urine culture pending, Rocephin for UTI #3. Past medical history of Waldo's disease #4. #5. Discharge diagnoses: #1. Hypoxia requiring home O2, wheezing/shortness of breath now improved, no infectious etiology seen on chest x-ray or based on physical examination and history. #2. Possible UTI urine cultures pending, Rocephin for UTI #3. Past medical history for Waldo's disease, assessment required for obstructive sleep apnea, congestive heart failure, possible underlying lung etiology #4. #5. Consultations: None Procedures: None Hospitalization course: Patient was admitted to the general floor under observation secondary to wheezing and hypoxia with oxygen saturation dropping down to 84% on room air. Patient was placed on 2 L of oxygen, given DuoNeb scheduled overnight. Patient was stabilized, wheezing had decreased by the time assessment was done in the morning, patient's airway was clear however patient was still requiring oxygen as titration could not be weaned off due to O2 saturation dropping below 88%. Patient however did feel a lot better and stated that she would like to go home. Patient also was noted to have a urinalysis that did indicate possible UTI infection patient has been placed on Rocephin for the possible UTI urine culture is pending. An oxygen challenge was done prior to discharge in which while the patient was lying down on room air patient's oxygen saturation dropped to 88%. No further assessment is required as while lying down on room air patient is below 88%. When placed on 2 L of oxygen while lying down patient's oxygen saturation was up to 92%. Patient is to be discharged on home oxygen of 2 L to be worn at all times for the next 3 months or up until reassessment by primary care physician. Disposition on discharge: Home Condition on discharge: Stable Discharge medications: Continuation of home medication, albuterol inhaler when necessary for shortness of breath and wheezing, Advair 250/50 inhaler 1 puff 2 times a day scheduled, home oxygen 2 L to be worn at all times for the next 3 months or up until reassessment by primary care physician. Keflex for 5 days. Follow-up instructions: Follow-up with Dr. Gordy Ibarra this . - Discharge Data Discharge Date: 09/15/17 Discharge Disposition: Home, Self-Care 01 Condition: Fair - Discharge Diagnosis/Problem(s) (1) Hypoxia SNOMED Code(s): 144312144 ICD Code: R09.02 - HYPOXEMIA Status: Acute Current Visit: Yes (2) UTI (urinary tract infection) SNOMED Code(s): 93288713 ICD Code: N39.0 - URINARY TRACT INFECTION, SITE NOT SPECIFIED Status: Acute Current Visit: No Qualifiers: Urinary tract infection type: site unspecified Hematuria presence: without hematuria Qualified Code(s): N39.0 - Urinary tract infection, site not specified - Patient Instructions Diet: Usual Diet as Tolerated Activity: As Tolerated Driving: Do Not Drive Showering/Bathing: May Shower Notify Provider of: Fever, Increased Pain, Swelling and Redness, Drainage, Nausea and/or Vomiting - Discharge Plan Prescriptions/Med Rec: Albuterol [IJD: Albuterol HFA] 1 puff .XX Q4H PRN 30 Days #8 gm PRN Reason: Shortness Of Breath Cephalexin [Keflex] 500 mg PO Q8H 5 Days #15 cap Fluticasone/Salmeterol [Advair 250-50] 1 puff INH BID 30 Days #1 diskus Home Medications: Home Meds Omeprazole 40 mg PO DAILY 01/09/14 [History] Hydrocortisone 10 mg PO QPM 07/23/14 [History] Hydrocortisone 15 mg PO QAM 07/23/14 [History] Propranolol [Inderal] 40 mg PO DAILY 03/14/16 [History] Calcium Carbonate [Calcium] 500 mg PO ASDIRECTED 12/18/16 [History] Vitamin B Complex 1 each PO DAILY 12/18/16 [History] traMADol HCl [Tramadol HCl] 1 tab PO ASDIRECTED 12/18/16 [History] Levothyroxine [Synthroid] 75 mcg PO ACBRK 09/14/17 [History] Albuterol [IJD: Albuterol HFA] 1 puff .XX Q4H PRN 30 Days #8 gm 09/15/17 [Rx] Cephalexin [Keflex] 500 mg PO Q8H 5 Days #15 cap 09/15/17 [Rx] Fluticasone/Salmeterol [Advair 250-50] 1 puff INH BID 30 Days #1 diskus [Rx] Referrals: [facility] [Outside] Gordy Ibarra MD [Physician] - 09/25/17 9:00 am - Discharge Summary/Plan Comment DC Time >30 min.: No - Patient Data Vitals - Most Recent: Last Vital Signs Temp 36.6 C 09/15/17 12:00 Pulse 68 09/15/17 12:00 Resp 20 09/15/17 12:00 BP 119/67 09/15/17 12:00 Pulse Ox 91 L 09/15/17 12:00 Weight - Most Recent: 106 kg I&O - Last 24 hours: Intake & Output 09/14/17 09/15/17 09/15/17 22:59 06:59 14:59 Intake Total 1390 Output Total 950 Balance 440 Lab Results - Last 24 hrs: Laboratory Results - last 24 hr 09/14/17 09/14/17 09/14/17 Range/Units 15:58 15:58 15:58 WBC 8.88 (4.0-11.0) K/uL RBC 3.79 L (4.30-5.90) M/uL Hgb 11.4 L (12.0-16.0) g/dL Hct 37.3 (36.0-46.0) % MCV 98.4 H (80.0-98.0) fL MCH 30.1 (27.0-32.0) pg MCHC 30.6 L (31.0-37.0) g/dL RDW Std Deviation 64.6 H (28.0-62.0) fl RDW Coeff of Sandrine 18 H (11.0-15.0) % Plt Count 233 (150-400) K/uL MPV 9.70 (7.40-12.00) fL Neut % (Auto) 64.8 (48.0-80.0) % Lymph % (Auto) 23.3 (16.0-40.0) % [place] % (Auto) 10.9 (0.0-15.0) % Eos % (Auto) 0.8 (0.0-7.0) % Baso % (Auto) 0.2 (0.0-1.5) % Neut # (Auto) 5.8 H (1.4-5.7) K/uL Lymph # (Auto) 2.1 (0.6-2.4) K/uL [place] # (Auto) 1.0 H (0.0-0.8) K/uL Eos # (Auto) 0.1 (0.0-0.7) K/uL Baso # (Auto) 0.0 (0.0-0.1) K/uL Nucleated RBC % 0.0 /100WBC Nucleated RBCs # 0 K/uL Lactate 0.6 (0.20-2.00) mmol/L Sodium 140 (136-145) mmol/L Potassium 4.7 (3.5-5.1) mmol/L Chloride 103 (98-107) mmol/L Carbon Dioxide 29.5 (21.0-32.0) mmol/L BUN 33 H (7.0-18.0) mg/dL Creatinine 2.7 H (0.6-1.0) mg/dL Est Cr Clr Drug Dosing 15.12 mL/min Estimated GFR (MDRD) 17.2 ml/min Glucose 91 (74-106) mg/dL Calcium 8.3 L (8.5-10.1) mg/dL Total Bilirubin 0.3 (0.2-1.0) mg/dL AST 33 (15-37) IU/L ALT 36 (14-63) IU/L Alkaline Phosphatase 85 (46-116) U/L Total Protein 6.9 (6.4-8.2) g/dL Albumin 3.2 L (3.4-5.0) g/dL Globulin 3.7 H (2.0-3.5) g/dL Albumin/Globulin Ratio 0.9 L (1.3-2.8) Urine Color Urine Appearance Urine pH (5.0-8.0) Ur Specific [place] (1.001-1.035) Urine Protein (NEGATIVE) mg/dL Urine Glucose (UA) (NEGATIVE) mg/dL Urine Ketones (NEGATIVE) mg/dL Urine Occult Blood (NEGATIVE) Urine Nitrite (NEGATIVE) Urine Bilirubin (NEGATIVE) Urine Urobilinogen (<2.0) EU/dL Ur Leukocyte Esterase (NEGATIVE) Urine RBC (0-2/HPF) Urine WBC (0-5/HPF) Ur Epithelial Cells (NONE-FEW) Urine Bacteria (NEGATIVE) Hyaline Casts (0-2/LPF) Fine Granular Casts (NEGATIVE) Urine Mucus (NONE-MOD) 09/14/17 09/15/17 09/15/17 Range/Units 18:06 05:18 05:18 WBC 7.77 (4.0-11.0) K/uL RBC 3.46 L (4.30-5.90) M/uL Hgb 10.4 L (12.0-16.0) g/dL Hct 34.5 L (36.0-46.0) % MCV 99.7 H (80.0-98.0) fL MCH 30.1 (27.0-32.0) pg MCHC 30.1 L (31.0-37.0) g/dL RDW Std Deviation 64.9 H (28.0-62.0) fl RDW Coeff of [place] 18 H (11.0-15.0) % Plt Count 220 (150-400) K/uL MPV 9.40 (7.40-12.00) fL Neut % (Auto) 66.1 (48.0-80.0) % Lymph % (Auto) 22.9 (16.0-40.0) % [place] % (Auto) 9.3 (0.0-15.0) % Eos % (Auto) 1.3 (0.0-7.0) % Baso % (Auto) 0.4 (0.0-1.5) % Neut # (Auto) 5.1 (1.4-5.7) K/uL Lymph # (Auto) 1.8 (0.6-2.4) K/uL [place] # (Auto) 0.7 (0.0-0.8) K/uL Eos # (Auto) 0.1 (0.0-0.7) K/uL Baso # (Auto) 0.0 (0.0-0.1) K/uL Nucleated RBC % 0.0 /100WBC Nucleated RBCs # 0 K/uL Lactate (0.20-2.00) mmol/L Sodium 139 (136-145) mmol/L Potassium 4.8 (3.5-5.1) mmol/L Chloride 104 (98-107) mmol/L Carbon Dioxide 32.1 H (21.0-32.0) mmol/L BUN 33 H (7.0-18.0) mg/dL Creatinine 2.5 H (0.6-1.0) mg/dL Est Cr Clr Drug Dosing 16.33 mL/min Estimated GFR (MDRD) 18.8 ml/min Glucose 86 (74-106) mg/dL Calcium 7.9 L (8.5-10.1) mg/dL Total Bilirubin 0.2 (0.2-1.0) mg/dL AST 30 (15-37) IU/L ALT 32 (14-63) IU/L Alkaline Phosphatase 76 (46-116) U/L Total Protein 6.4 (6.4-8.2) g/dL Albumin 2.8 L (3.4-5.0) g/dL Globulin 3.6 H (2.0-3.5) g/dL Albumin/Globulin Ratio 0.8 L (1.3-2.8) Urine Color YELLOW Urine Appearance SLT CLOUDY Urine pH 5.5 (5.0-8.0) Ur Specific [place] 1.025 (1.001-1.035) Urine Protein 30 (NEGATIVE) mg/dL Urine Glucose (UA) NEGATIVE (NEGATIVE) mg/dL Urine Ketones NEGATIVE (NEGATIVE) mg/dL Urine Occult Blood NEGATIVE (NEGATIVE) Urine Nitrite NEGATIVE (NEGATIVE) Urine Bilirubin NEGATIVE (NEGATIVE) Urine Urobilinogen 0.2 (<2.0) EU/dL Ur Leukocyte Esterase TRACE (NEGATIVE) Urine RBC 0-2 (0-2/HPF) Urine WBC 4-7 (0-5/HPF) Ur Epithelial Cells FEW (NONE-FEW) Urine Bacteria 1+ H (NEGATIVE) Hyaline Casts 0-2 (0-2/LPF) Fine Granular Casts 0-1 (NEGATIVE) Urine Mucus MODERATE (NONE-MOD) Med Orders - Current: Current Medications Albuterol/Ipratropium (Duoneb 3.0-0.5 Mg/3 Ml) 3 ml NEB Q4HRRT ABELINO Last Admin: 09/15/17 10:52 Dose: 3 ml Heparin Sodium (Porcine) (Heparin Sodium) 5,000 units SUBCUT Q12H ABELINO Hydrocortisone (Cortef) 10 mg PO QPM ABELINO Hydrocortisone (Cortef) 15 mg PO QAM ABELINO Last Admin: 09/15/17 08:40 Dose: 15 mg Lactated Ringer's (Ringers, Lactated) 1,000 mls @ 999 mls/hr IV .BOLUS PENDING SALE TO [facility] Last Infusion: 09/14/17 19:13 Dose: Infused Levothyroxine Sodium (Synthroid) 75 mcg PO ACBRK PENDING SALE TO [facility] Last Admin: 09/15/17 06:30 Dose: 75 mcg Propranolol HCl (Inderal) 40 mg PO BEDTIME PENDING SALE TO [facility] Last Admin: 09/14/17 22:09 Dose: 40 mg Sodium Chloride (Saline Flush) 10 ml FLUSH ASDIRECTED PRN PRN Reason: Keep Vein Open Sodium Chloride (Saline Flush) 2.5 ml FLUSH ASDIRECTED PRN PRN Reason: Keep Vein Open Tramadol HCl (Ultram) 50 mg PO Q6H PRN PRN Reason: Pain Discontinued Medications Albuterol/Ipratropium (Duoneb 3.0-0.5 Mg/3 Ml) 3 ml NEB ONETIME ONE Stop: 09/14/17 18:22 Last Admin: 09/14/17 18:28 Dose: 3 ml Enoxaparin Sodium (Lovenox) 40 mg SUBCUT Q24H PENDING SALE TO [facility] Last Admin: 09/14/17 20:47 Dose: 40 mg Ceftriaxone Sodium 1,000 mg/ (Sodium Chloride) 50 mls @ 200 mls/hr IV Q24H ONE Stop: 09/14/17 20:04 Last Admin: 09/14/17 21:24 Dose: Not Given Lactated Ringer's (Ringers, Lactated) 1,000 mls @ 125 mls/hr IV ASDIRECTED PENDING SALE TO [facility] Last Admin: 09/15/17 02:38 Dose: 125 mls/hr Ceftriaxone Sodium/Dextrose (Rocephin In Dextrose,Iso-Osm 1 Gm/50 Ml) 50 mls @ 200 mls/hr IV ONETIME ONE Stop: 09/14/17 21:14 Last Admin: 09/14/17 21:14 Dose: 200 mls/hr Ceftriaxone Sodium/Dextrose (Rocephin In Dextrose,Iso-Osm 1 Gm/50 Ml) Confirm Administered Dose 50 mls @ as directed .ROUTE .STK-MED ONE Stop: 09/14/17 21:10 Last Admin: 09/14/17 21:56 Dose: Not Given
[2017-09-15] MEDS ORDERED: Heparin Sodium 5,000 Units/ML Vial SUBCUT SCH (21:00)
== END 2017-09-15 17:30 | disposition home or self-care (01) ==
LOC: MW.ED 14:00 → MW.MS 18:48
PROVIDERS: ADMIT Internal Medicine; ATTEND Internal Medicine
DX: R09.02 Hypoxemia (principal); N39.0 Urinary tract infection, site not specified; G47.33 Obstructive sleep apnea (adult) (pediatric); I50.9 Heart failure, unspecified; I10 Essential (primary) hypertension; I95.9 Hypotension, unspecified; E03.9 Hypothyroidism, unspecified; Z79.899 Other long term (current) drug therapy; Z88.0 Allergy status to penicillin; Z88.8 Allergy status to other drugs, medicaments and biological substances; Z91.012 Allergy to eggs; Z87.891 Personal history of nicotine dependence
CPT/HCPCS: 36415; 71046; 80053; 81001; 83605; 85025; 87086; 94640; 96361; 96372; 96374; 99285; A9270; G0378; J0696; J1650; J7120; 96360; 99283

== ENCOUNTER 2017-10-06 16:40 | Inpatient (IN) | payer MEDICARE, OTHER ==
[2017-10-06] MEDS ORDERED: Sodium Chloride 0.9% 2.5 ML Syringe FLUSH PRN ×2 (16:44→22:02)
[2017-10-06] MEDS ORDERED: Sodium Chloride 0.9% 10 ML Syringe FLUSH PRN ×2 (16:44→22:02)
--- NOTE | 2017-10-06 16:48 | EDM.PDOC ---
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 The patient says that it started and she feels like it is getting worse which is why she came in. She is not having trouble swallowing and she is not having any arm or leg weakness. She has not had any falls with this. She has no chest pain no abdominal pain no nausea or vomiting but does complain of a frontal headache. Patient came in via triage with a family member. The patient tells triage that she has a history of strokes in the past but per the computer she has a history of the intracranial aneurysm in the last testing that I see is an MR I MRA of the head done January 26, 2014 revealing the 7 x 8 mm fusiform aneurysmal dilatation of the basilar tip and aneurysmal clip within the right MCA distribution. According to the patient she had the one aneurysm clipped but the other one they were not able to do anything about. She does not have any neck pain currently. As for the oxygen she was discharged home with, she says that she has not had that for 2 weeks so she has not been using it. The patient also tells nursing that her left arm and her left leg seemed a little bit tingly but they are not weak. The patient again reiterates that all the symptoms started at 2:58 AM this morning Upon asking further by nursing the patient says that she could not afford to get the oxygen at home which is why she is not using on a regular basis Review of systems: As per history of present illness and below otherwise all systems reviewed and negative. Past medical history: As per history of present illness and as reviewed below otherwise noncontributory. Surgical history: As per history of present illness and as reviewed below otherwise noncontributory. Social history: No reported history of drug or alcohol abuse. Family history: As per history of present illness and as reviewed below otherwise noncontributory. Physical exam: General: Well-developed well-nourished overweight female who is nontoxic and does have some slight garbling of her speech but it is very comprehensible and she is awake and alert and smiling. She is in no respiratory distress not breathless HEENT: Atraumatic, normocephalic, pupils reactive, negative for conjunctival pallor or scleral icterus, mucous membranes moist, throat clear, neck supple, nontender, trachea midline. Lungs: Clear to auscultation with coarse breath sounds bilaterally, breath sounds equal bilaterally, chest nontender. No work of breathing or sensory muscle use and no stridor Heart: S1S2, regular and rhythm no overt murmurs Abdomen: Soft, nondistended, nontender. Negative for masses or hepatosplenomegaly. Negative for costovertebral tenderness. Pelvis: Stable nontender. Genitourinary: Deferred. Rectal: Deferred. Extremities: Atraumatic, negative for cords or calf pain. Neurovascular unremarkable. She has full range of motion of all extremities Neuro: Awake, alert, oriented. Cranial nerves II through XII unremarkable. Cerebellum unremarkable. Motor and sensory unremarkable throughout. Exam nonfocal. Strength in docking pilot and with kick is good 5/5 throughout and there is normal tone. Speech is as described above. Diagnostics: CT scan of the head chest x-ray EKG CBC CMP INR troponin TSH UA NIHSS Therapeutics: IV O2 monitor aspirin At this point the patient is timing the start of her symptoms at 2-3 AM this morning which is significantly outside of the window for TPA and her deficit also is not significant enough for TPA administration. She also has a history of an active aneurysm which is not leaking and is unchanged per the CT scan. The patient's NIHSS = 4, which she lost points for slight ataxia of left leg as well as sensation changes on left arm and leg and the speech. The patient tells me that all of these symptoms started simultaneously Repeat nihss=3 with significant improvement of her speech. I discussed this case with the hospitalist Dr. Erickson @[id number] who accepts the patient for telemetry inpatient admission. She is aware that we have some pending labs and that I will follow-up on those. I discussed admission with the patient and she is agreeable. Labs from today were compared to the prior ones performed on the last admission. BUN and creatinine him to be consistent with prior values. I discussed this case with the hospitalist Dr. SHRESTHA AT [phone] Who accepts the patient for inpatient admission to telemetry. I discussed all testing results with the patient and family at bedside. She has not produced a urine sample yet and will not hold her in the ED for that. Will inform the floor to please get a sample for her Please note that the patient is not a candidate for TPA as described above and currently her stroke scale is improving. Impression: Expressive aphasia with paresthesia of the left upper and lower extremities mild, rule out TIA versus CVA Definitive disposition and diagnosis as appropriate pending reevaluation and review of above. Headache Pain Score (Numeric/FACES): 8 - Related Data Allergies Allergy/AdvReac Type Severity Reaction Status Date / Time egg Allergy Mild Nausea Verified 10/06/17 16:43 codeine Allergy Rash Verified 10/06/17 16:43 diazepam [From Valium] Allergy Rash Verified 10/06/17 16:43 morphine Allergy Agitation Verified 10/06/17 16:43 Penicillins Allergy Other Verified 10/06/17 16:43 Home Meds: Home Meds Omeprazole 40 mg PO DAILY 01/09/14 [History] Hydrocortisone 10 mg PO QPM 07/23/14 [History] Hydrocortisone 15 mg PO QAM 07/23/14 [History] Propranolol [Inderal] 40 mg PO DAILY 03/14/16 [History] Calcium Carbonate [Calcium] 500 mg PO ASDIRECTED 12/18/16 [History] Vitamin B Complex 1 each PO DAILY 12/18/16 [History] traMADol HCl [Tramadol HCl] 1 tab PO ASDIRECTED 12/18/16 [History] Levothyroxine [Synthroid] 75 mcg PO ACBRK 09/14/17 [History] Albuterol [IJD: Albuterol HFA] 1 puff .XX Q4H PRN 30 Days #8 gm 09/15/17 [Rx] Cephalexin [Keflex] 500 mg PO Q8H 5 Days #15 cap 09/15/17 [Rx] Fluticasone/Salmeterol [Advair 250-50] 1 puff INH BID 30 Days #1 diskus [Rx] Past Medical History HEENT History: Reports: Impaired Vision Cardiovascular History: Reports: Hypertension Other Cardiovascular History: hypotension Respiratory History: Reports: SOB Gastrointestinal History: Reports: None Genitourinary History: Reports: None MULE TENDER History: Reports: Musculoskeletal History: Reports: None Neurological History: Reports: Cerebral Aneurysms, CVA, Other (See Below) Other Neuro History: brain tumor Psychiatric History: Reports: None 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, Hypothyroidism Hematologic History: Reports: None Immunologic History: Reports: None Oncologic (Cancer) History: Reports: Other (See Below) Other Oncologic History: brain tumors, treated with radiation Dermatologic History: Reports: None - Infectious Disease History Infectious Disease History: Reports: Chicken Pox, Measles, Mumps Other Infectious Disease History: childhood - Past Surgical History HEENT Surgical History: Reports: Other (See Below) Other HEENT Surgeries/Procedures: benign brain tumors removed in Female Surgical History: Reports: Hysterectomy, Nephrectomy Other Female Surgeries/Procedures: only one kidney Social & Family History - Family History Family Medical History: Noncontributory - Tobacco Use Smoking Status *Q: Former Smoker Years of Tobacco use: 32 Packs/Tins Daily: 0.3 Used Tobacco, but Quit: Yes Month/Year Tobacco Last Used: Second Hand Smoke Exposure: No - Caffeine Use Caffeine Use: Reports: Coffee, Tea - Recreational Drug Use Recreational Drug Use: No ED ROS GENERAL - Review of Systems Review Of Systems: ROS reveals no pertinent complaints other than HPI. ED EXAM, GENERAL - Physical Exam Exam: See Below (See dictation) Course - Vital Signs Last Recorded V/S: Last Vital Signs Temp 36.8 C 10/06/17 16:44 Pulse 85 10/06/17 16:44 Resp 18 10/06/17 16:44 BP 140/42 L 10/06/17 16:44 Pulse Ox 95 10/06/17 16:44 - Orders/Labs/Meds Orders: Active Orders 24 hr Category Date Time Status Blood Glucose Check, Bedside [RC] ONETIME Care 10/06/17 16:44 Active Cardiac Monitoring [RC] . DIRECTED Care 10/06/17 16:44 Active Communication Order [RC] STAT Care 10/06/17 16:45 Active EKG Documentation Completion [RC] STAT Care 10/06/17 16:44 Active Oxygen Therapy, ED [RC] ASDIRECTED Care 10/06/17 16:44 Active Pulse Oximetry [RC] ASDIRECTED Care 10/06/17 16:44 Active Chest 1V Frontal [CR] Stat Exams 10/06/17 16:45 Taken Head wo Cont [CT] Stat Exams 10/06/17 16:45 Taken UA W/MICROSCOPIC [URIN] Stat Lab 10/06/17 16:45 Ordered Sodium Chloride 0.9% [Saline Flush] Med 10/06/17 16:44 Active 10 ml FLUSH ASDIRECTED PRN Sodium Chloride 0.9% [Saline Flush] Med 10/06/17 16:44 Active 2.5 ml FLUSH ASDIRECTED PRN Saline Lock Insert [OM.PC] Stat Oth 10/06/17 16:44 Ordered Medication Orders Sodium Chloride (Saline Flush) 10 ml FLUSH ASDIRECTED PRN PRN Reason: Keep Vein Open Sodium Chloride (Saline Flush) 2.5 ml FLUSH ASDIRECTED PRN PRN Reason: Keep Vein Open Labs: Laboratory Tests 10/06/17 10/06/17 10/06/17 Range/Units 17:04 17:04 17:04 WBC 9.79 (4.0-11.0) K/uL RBC 3.42 L (4.30-5.90) M/uL Hgb 10.4 L (12.0-16.0) g/dL Hct 34.0 L (36.0-46.0) % MCV 99.4 H (80.0-98.0) fL MCH 30.4 (27.0-32.0) pg MCHC 30.6 L (31.0-37.0) g/dL RDW Std Deviation 62.7 H (28.0-62.0) fl RDW Coeff of Sandrine 17 H (11.0-15.0) % Plt Count 288 (150-400) K/uL MPV 9.50 (7.40-12.00) fL Neut % (Auto) 73.8 (48.0-80.0) % Lymph % (Auto) 18.2 (16.0-40.0) % [place] % (Auto) 5.6 (0.0-15.0) % Eos % (Auto) 1.8 (0.0-7.0) % Baso % (Auto) 0.6 (0.0-1.5) % Neut # (Auto) 7.2 H (1.4-5.7) K/uL Lymph # (Auto) 1.8 (0.6-2.4) K/uL [place] # (Auto) 0.6 (0.0-0.8) K/uL Eos # (Auto) 0.2 (0.0-0.7) K/uL Baso # (Auto) 0.1 (0.0-0.1) K/uL Nucleated RBC % 0.0 /100WBC Nucleated RBCs # 0 K/uL INR 0.98 Sodium 140 (136-145) mmol/L Potassium 5.0 (3.5-5.1) mmol/L Chloride 104 (98-107) mmol/L Carbon Dioxide 33.2 H (21.0-32.0) mmol/L BUN 42 H (7.0-18.0) mg/dL Creatinine 2.2 H (0.6-1.0) mg/dL Est Cr Clr Drug Dosing TNP Estimated GFR (MDRD) 21.8 ml/min Glucose 101 (74-106) mg/dL Calcium 8.6 (8.5-10.1) mg/dL Total Bilirubin 0.2 (0.2-1.0) mg/dL AST 21 (15-37) IU/L ALT 25 (14-63) IU/L Alkaline Phosphatase 70 (46-116) U/L Troponin I < 0.050 (0.000-0.056) ng/mL Total Protein 6.7 (6.4-8.2) g/dL Albumin 3.1 L (3.4-5.0) g/dL Globulin 3.6 H (2.0-3.5) g/dL Albumin/Globulin Ratio 0.9 L (1.3-2.8) TSH 3rd Generation 0.29 L (0.36-3.74) uIU/mL Meds: Medications Generic Name Dose Route Start Last Admin Trade Name Freq PRN Reason Stop Dose Admin Sodium Chloride 10 ml 10/06/17 16:44 Saline Flush FLUSH ASDIRECTED PRN Keep Vein Open Sodium Chloride 2.5 ml 10/06/17 16:44 Saline Flush FLUSH ASDIRECTED PRN Keep Vein Open Departure - Departure Time of Disposition: 18:06 Disposition: Admitted As Inpatient 64 Condition: Good Clinical Impression: Expressive aphasia, Paresthesia - Discharge Information Referrals: Gordy Ibarra MD [Primary Care Provider] - - My Orders Last 24 Hours: My Active Orders 10/06/17 16:44 Blood Glucose Check, Bedside [RC] ONETIME Cardiac Monitoring [RC] . DIRECTED EKG Documentation Completion [RC] STAT Oxygen Therapy, ED [RC] ASDIRECTED Pulse Oximetry [RC] ASDIRECTED Sodium Chloride 0.9% [Saline Flush] 10 ml FLUSH ASDIRECTED PRN Sodium Chloride 0.9% [Saline Flush] 2.5 ml FLUSH ASDIRECTED PRN Saline Lock Insert [OM.PC] Stat 10/06/17 16:45 Communication Order [RC] STAT Chest 1V Frontal [CR] Stat Head wo Cont [CT] Stat UA W/MICROSCOPIC [URIN] Stat - Assessment/Plan Last 24 Hours: My Active Orders 10/06/17 16:44 Blood Glucose Check, Bedside [RC] ONETIME Cardiac Monitoring [RC] . DIRECTED EKG Documentation Completion [RC] STAT Oxygen Therapy, ED [RC] ASDIRECTED Pulse Oximetry [RC] ASDIRECTED Sodium Chloride 0.9% [Saline Flush] 10 ml FLUSH ASDIRECTED PRN Sodium Chloride 0.9% [Saline Flush] 2.5 ml FLUSH ASDIRECTED PRN Saline Lock Insert [OM.PC] Stat 10/06/17 16:45 Communication Order [RC] STAT Chest 1V Frontal [CR] Stat Head wo Cont [CT] Stat UA W/MICROSCOPIC [URIN] Stat
[2017-10-06 18:03] LABS: CHLORIDE,CL 104 mmol/L (98-107); SODIUM,NA 140 mmol/L (136-145)
[2017-10-06] MEDS ORDERED: Aspirin 325 MG Tab PO ONE (18:12)
[2017-10-06] MEDS ORDERED: Albuterol/Ipratropium 3.0-0.5 MG/3 ML Neb Soln NEB PRN (22:02)
[2017-10-06] MEDS ORDERED: Lactated Ringers 1,000 ML IV SCH ×2 (22:15→22:45)
[2017-10-06] MEDS ORDERED: Hydrocortisone 20 MG Tab PO ONE (22:31)
[2017-10-06] MEDS ORDERED: atorvaSTATin 40 MG Tab PO SCH (22:35)
--- NOTE | 2017-10-06 23:52 | PCM.HP ---
H&P History of Present Illness - General Date of Service: 10/06/17 Admit Problem/Dx: Admission Diagnosis/Problem Admission Diagnosis/Problem slurred speech - History of Present Illness Initial Comments - Free Text/Narative: Patient presented to hospital brought to Er in the afternoon by her nephew due to slurred speech that started in the morning about 3 am . She suffers fro hypoxia secondary to COPD and could afford her O2 only for 1 week. At the moment of my examination she denies any tingling or numbness or weakness in the face or in the arms or legs , no blurry vision. She was a smoker for more than 30 y, currently she is wheezing. Has Bartow disease and hypothyroidism , and a brain aneurysm of 1 cm. Onset of Symptoms: Reports: Today Symptom Onset Date: 10/06/17 Duration of Symptoms: Reports: Hour(s): Headache Pain Score (Numeric/FACES): 0 - Related Data Allergies/Adverse Reactions: Allergies Allergy/AdvReac Type Severity Reaction Status Date / Time egg Allergy Mild Nausea Verified 10/06/17 16:43 codeine Allergy Rash Verified 10/06/17 16:43 diazepam [From Valium] Allergy Rash Verified 10/06/17 16:43 morphine Allergy Agitation Verified 10/06/17 16:43 Penicillins Allergy Other Verified 10/06/17 16:43 Home Medications: Home Meds Omeprazole 40 mg PO DAILY 01/09/14 [History] Hydrocortisone 10 mg PO QPM 07/23/14 [History] Hydrocortisone 15 mg PO QAM 07/23/14 [History] Propranolol [Inderal] 40 mg PO DAILY 03/14/16 [History] Calcium Carbonate [Calcium] 500 mg PO ASDIRECTED 12/18/16 [History] Vitamin B Complex 1 each PO DAILY 12/18/16 [History] traMADol HCl [Tramadol HCl] 1 tab PO ASDIRECTED 12/18/16 [History] Levothyroxine [Synthroid] 75 mcg PO ACBRK 09/14/17 [History] Albuterol [IJD: Albuterol HFA] 1 puff .XX Q4H PRN 30 Days #8 gm 09/15/17 [Rx] Cephalexin [Keflex] 500 mg PO Q8H 5 Days #15 cap 09/15/17 [Rx] Fluticasone/Salmeterol [Advair 250-50] 1 puff INH BID 30 Days #1 diskus [Rx] Past Medical History HEENT History: Reports: Impaired Vision Cardiovascular History: Reports: Hypertension Other Cardiovascular History: hypotension Respiratory History: Reports: SOB Gastrointestinal History: Reports: None Genitourinary History: Reports: None 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: Musculoskeletal History: Reports: None Neurological History: Reports: Cerebral Aneurysms, CVA, Other (See Below) Other Neuro History: brain tumor Psychiatric History: Reports: None Endocrine/Metabolic History: Reports: Bartow's Disease, Hypothyroidism Hematologic History: Reports: None Immunologic History: Reports: None Oncologic (Cancer) History: Reports: Other (See Below) Other Oncologic History: brain tumors, treated with radiation Dermatologic History: Reports: None - Infectious Disease History Infectious Disease History: Reports: Chicken Pox, Measles, Mumps Other Infectious Disease History: childhood - Past Surgical History HEENT Surgical History: Reports: Other (See Below) Other HEENT Surgeries/Procedures: benign brain tumors removed in Female Surgical History: Reports: Hysterectomy, Nephrectomy Other Female Surgeries/Procedures: only one kidney Social & Family History - Family History Family Medical History: Noncontributory - Tobacco Use Smoking Status *Q: Former Smoker Years of Tobacco use: 32 Packs/Tins Daily: 0.3 Used Tobacco, but Quit: Yes Month/Year Tobacco Last Used: Second Hand Smoke Exposure: No - Caffeine Use Caffeine Use: Reports: Coffee, Tea - Recreational Drug Use Recreational Drug Use: No H&P Review of Systems - Review of Systems: Review Of Systems: See Below General: Reports: No Symptoms HEENT: Reports: No Symptoms, Other ( slurred speach) Pulmonary: Reports: Wheezing Cardiovascular: Reports: No Symptoms Gastrointestinal: Reports: No Symptoms Genitourinary: Reports: No Symptoms Musculoskeletal: Reports: No Symptoms Skin: Reports: No Symptoms Psychiatric: Reports: No Symptoms Neurological: Reports: Change in Speech Hematologic/Lymphatic: Reports: No Symptoms Immunologic: Reports: No Symptoms Exam - Exam Exam: See Below - Vital Signs Vital Signs: Last Vital Signs Temp 98.1 F 10/06/17 20:28 Pulse 70 10/06/17 20:28 Resp 18 10/06/17 20:28 BP 141/67 H 10/06/17 20:28 Pulse Ox 100 10/06/17 20:28 Weight: 241 lb 6.499 oz - Exam Quality Assessment: Supplemental Oxygen General: Alert, Oriented HEENT: Conjunctiva Clear, EACs Clear, EOMI, Posterior Pharynx Clear, Pupils Reactive Neck: Supple, Trachea Midline, Full Range of Motion. No: Lymphadenopathy Lungs: Decreased Breath Sounds, Wheezing Cardiovascular: Regular Rate, Regular Rhythm, Normal S1, Normal S2, Gallop/S4 GI/Abdominal Exam: Normal Bowel Sounds, Soft, Non-Tender, No Distention, No Abnormal Bruit, No Mass Back Exam: Normal Inspection Skin: Warm, Dry, Intact, Cool Neurological: Cranial Nerves Intact Neuro Extensive - Mental Status: Alert, Oriented x3 - Patient Data Lab Results Last 24 hrs: Laboratory Results - last 24 hr 10/06/17 10/06/17 10/06/17 Range/Units 17:04 17:04 17:04 WBC 9.79 (4.0-11.0) K/uL RBC 3.42 L (4.30-5.90) M/uL Hgb 10.4 L (12.0-16.0) g/dL Hct 34.0 L (36.0-46.0) % MCV 99.4 H (80.0-98.0) fL MCH 30.4 (27.0-32.0) pg MCHC 30.6 L (31.0-37.0) g/dL RDW Std Deviation 62.7 H (28.0-62.0) fl RDW Coeff of Sandrine 17 H (11.0-15.0) % Plt Count 288 (150-400) K/uL MPV 9.50 (7.40-12.00) fL Neut % (Auto) 73.8 (48.0-80.0) % Lymph % (Auto) 18.2 (16.0-40.0) % [place] % (Auto) 5.6 (0.0-15.0) % Eos % (Auto) 1.8 (0.0-7.0) % Baso % (Auto) 0.6 (0.0-1.5) % Neut # (Auto) 7.2 H (1.4-5.7) K/uL Lymph # (Auto) 1.8 (0.6-2.4) K/uL [place] # (Auto) 0.6 (0.0-0.8) K/uL Eos # (Auto) 0.2 (0.0-0.7) K/uL Baso # (Auto) 0.1 (0.0-0.1) K/uL Nucleated RBC % 0.0 /100WBC Nucleated RBCs # 0 K/uL INR 0.98 Sodium 140 (136-145) mmol/L Potassium 5.0 (3.5-5.1) mmol/L Chloride 104 (98-107) mmol/L Carbon Dioxide 33.2 H (21.0-32.0) mmol/L BUN 42 H (7.0-18.0) mg/dL Creatinine 2.2 H (0.6-1.0) mg/dL Est Cr Clr Drug Dosing TNP Estimated GFR (MDRD) 21.8 ml/min Glucose 101 (74-106) mg/dL Calcium 8.6 (8.5-10.1) mg/dL Total Bilirubin 0.2 (0.2-1.0) mg/dL AST 21 (15-37) IU/L ALT 25 (14-63) IU/L Alkaline Phosphatase 70 (46-116) U/L Troponin I < 0.050 (0.000-0.056) ng/mL Total Protein 6.7 (6.4-8.2) g/dL Albumin 3.1 L (3.4-5.0) g/dL Globulin 3.6 H (2.0-3.5) g/dL Albumin/Globulin Ratio 0.9 L (1.3-2.8) TSH 3rd Generation 0.29 L (0.36-3.74) uIU/mL Result Diagrams: 10/07/17 05:05 10/07/17 05:05 - Problem List (1) Cerebrovascular accident (CVA) SNOMED Code(s): 884368397 ICD Code: I63.9 - CEREBRAL INFARCTION, UNSPECIFIED Status: Acute Current Visit: Yes (2) Hypothyroidism SNOMED Code(s): 59243270 ICD Code: E03.9 - HYPOTHYROIDISM, UNSPECIFIED Status: Acute Current Visit : Yes (3) Adrenal insufficiency ([place]'s disease) SNOMED Code(s): 662490554 ICD Code: E27.1 - PRIMARY ADRENOCORTICAL INSUFFICIENCY Status: Acute Current Visit: No (4) Hypoxia SNOMED Code(s): 430690970 ICD Code: R09.02 - HYPOXEMIA Status: Acute Current Visit: No (5) COPD with exacerbation SNOMED Code(s): 346711223 ICD Code: J44.1 - CHRONIC OBSTRUCTIVE PULMONARY DISEASE W (ACUTE) EXACERBATION Status: Acute Current Visit: Yes Problem List Initiated/Reviewed/Updated: Yes Orders Last 24hrs: Active Orders 24 hr Category Date Time Status Patient Status [ADT] Stat ADT 10/06/17 18:12 Active Cardiac Monitoring [RC] . DIRECTED Care 10/06/17 16:44 Active Communication Order [RC] ROUTINE Care 10/06/17 22:10 Active EKG Documentation Completion [RC] STAT Care 10/06/17 16:44 Active Neuro Check [RC] Q2HR Care 10/06/17 22:11 Active Oxygen Therapy [RC] PRN Care 10/06/17 22:02 Active Pulse Oximetry [RC] PRN Care 10/06/17 22:02 Active RT Aerosol Therapy [RC] ASDIRECTED Care 10/06/17 22:04 Active RT Post Treatment Assessment [RC] Click to Edit Care 10/06/17 23:38 Active RT Pre-Treatment Assessment [RC] Click to Edit Care 10/06/17 23:38 Active Up With Assistance [RC] ASDIRECTED Care 10/06/17 22:02 Inactive Up ad Janette [RC] ASDIRECTED Care 10/06/17 22:02 Active VTE/DVT Education [RC] PER UNIT ROUTINE Care 10/06/17 22:02 Active Vital Signs [RC] Q4H Care 10/06/17 22:02 Active PT Evaluation and Treatment [CONS] Routine Cons 10/06/17 22:02 Active Chest 1V Frontal [CR] Stat Exams 10/06/17 16:45 Taken Head wo Cont [CT] Stat Exams 10/06/17 16:45 Taken BASIC METABOLIC PANEL,BMP [CHEM] AM Lab 10/07/17 05:11 Ordered BASIC METABOLIC PANEL,BMP [CHEM] AM Lab 10/08/17 05:11 Ordered BASIC METABOLIC PANEL,BMP [CHEM] AM Lab 10/09/17 05:11 Ordered BASIC METABOLIC PANEL,BMP [CHEM] AM Lab 10/10/17 05:11 Ordered CBC WITH AUTO DIFF [HEME] AM Lab 10/07/17 05:11 Ordered CBC WITH AUTO DIFF [HEME] AM Lab 10/08/17 05:11 Ordered CBC WITH AUTO DIFF [HEME] AM Lab 10/09/17 05:11 Ordered CBC WITH AUTO DIFF [HEME] AM Lab 10/10/17 05:11 Ordered MAGNESIUM [CHEM] AM Lab 10/07/17 05:11 Ordered MAGNESIUM [CHEM] AM Lab 10/08/17 05:11 Ordered MAGNESIUM [CHEM] AM Lab 10/09/17 05:11 Ordered MAGNESIUM [CHEM] AM Lab 10/10/17 05:11 Ordered UA W/MICROSCOPIC [URIN] Stat Lab 10/06/17 16:45 Ordered Albuterol/Ipratropium [DuoNeb 3.0-0.5 MG/3 ML] Med 10/06/17 22:02 Active 3 ml NEB Q4HRRT PRN Aspirin Med 10/06/17 22:45 Active 300 mg RECTAL DAILY Fluticasone/Salmeterol [Advair Diskus 250-50] Med 10/06/17 23:45 Active 1 puff INH BID Lactated Ringers [Ringers, Lactated] 1,000 ml Med 10/06/17 22:15 Active IV ASDIRECTED Sodium Chloride 0.9% [Saline Flush] Med 10/06/17 16:44 Active 10 ml FLUSH ASDIRECTED PRN Sodium Chloride 0.9% [Saline Flush] Med 10/06/17 22:02 Active 10 ml FLUSH ASDIRECTED PRN Sodium Chloride 0.9% [Saline Flush] Med 10/06/17 16:44 Active 2.5 ml FLUSH ASDIRECTED PRN Sodium Chloride 0.9% [Saline Flush] Med 10/06/17 22:02 Active 2.5 ml FLUSH ASDIRECTED PRN atorvaSTATin [Lipitor] Med 10/06/17 22:35 Active 40 mg PO BEDTIME Peripheral IV Insertion Adult [OM.PC] Routine Oth 10/06/17 22:02 Ordered Saline Lock Insert [OM.PC] Stat Oth 10/06/17 16:44 Ordered Sequential Compression Device [OM.PC] Per Unit Routine Oth 10/06/17 22:02 Ordered Resuscitation Status Routine Resus Stat 10/06/17 22:02 Ordered Medication Orders Albuterol/Ipratropium (Duoneb 3.0-0.5 Mg/3 Ml) 3 ml NEB Q4HRRT PRN PRN Reason: Shortness Of Breath/wheezing Aspirin (Aspirin) 300 mg RECTAL DAILY [facility] Atorvastatin Calcium (Lipitor) 40 mg PO BEDTIME [facility] Last Admin: 10/06/17 22:53 Dose: 40 mg Lactated Ringer's (Ringers, Lactated) 1,000 mls @ 125 mls/hr IV ASDIRECTED [facility] Last Admin: 10/06/17 22:55 Dose: 125 mls/hr Fluticasone/Salmeterol (Advair Diskus 250-50) 1 puff INH BID [facility] Sodium Chloride (Saline Flush) 10 ml FLUSH ASDIRECTED PRN PRN Reason: Keep Vein Open Sodium Chloride (Saline Flush) 2.5 ml FLUSH ASDIRECTED PRN PRN Reason: Keep Vein Open Sodium Chloride (Saline Flush) 10 ml FLUSH ASDIRECTED PRN PRN Reason: Keep Vein Open Sodium Chloride (Saline Flush) 2.5 ml FLUSH ASDIRECTED PRN PRN Reason: Keep Vein Open Cerebrovascular accident - will admit patient to telemetry , NPO , bedside speech and swallow evaluation by the nurse , lipid profile , hemoglobin A1 c , carotid doppler , echo, neurochecks q 2 h for the first 8 h after that q 4 h for the next 8 h , and q 8 h after the first 24 h. Will give patient aspirin rectal 300 mg , and once she passed the speech and swallow evaluation she will get atorvastatin 40 mg po daily. PT evaluation , hold BP meds , Iv fluids , keep blood pressure elevated for the first 24-48 h and treat only if BP more than 220/110 or signs of end organ damage. Carotid doppler , ECHo, monitor in telemetry 2) COPD exac - will give patient duoneb neb treatment q 4 h prn , Advair 250/50 1 puff inh BID , solumedrol 40 mg iv q 6 h 3) DVT prof : SCD 4)Hypoxia- please eval patient patient for O2 at home 5)[place]is[place] disease : will continue patient with hydrocortisone po as per home reconciliation hypothyroidism: levothyroxine po 75 mcg po daily
[2017-10-06] MEDS: Fluticasone/Salmeterol 250-50 MCG Inhalation Powder 14/Diskus INH SCH (23:53)
[2017-10-06] MEDS: Aspirin 300 MG Supp RECTAL SCH (23:56)
[2017-10-07] MEDS: Aspirin 300 MG Supp RECTAL SCH ×2 (01:01→09:32)
--- NOTE | 2017-10-07 08:24 | PCM.PN ---
- General Info Date of Service: 10/07/17 Admission Dx/Problem (Free Text): Admission Diagnosis/Problem Admission Diagnosis/Problem slurred speech Subjective Update: Continues to have some garbled speech, she reports she thinks it is better. Reports headache, which is located all over. Denies neck pain. No visual changes. No chest pain or SOB. No limb weakness or parathesias. Functional Status: Reports: Pain Controlled, Tolerating Diet, Ambulating, Urinating - Review of Systems General: Reports: No Symptoms. Denies: Fever, Weakness, Fatigue HEENT: Reports: Headaches. Denies: Sinus Congestion, Sore Throat, Visual Changes Pulmonary: Reports: No Symptoms. Denies: Shortness of Breath, Cough, Sputum Cardiovascular: Reports: No Symptoms. Denies: Chest Pain, Edema Gastrointestinal: Reports: No Symptoms. Denies: Abdominal Pain, Nausea, Vomiting Genitourinary: Reports: No Symptoms. Denies: Dysuria, Frequency, Burning Musculoskeletal: Denies: Neck Pain, Back Pain Skin: Reports: No Symptoms Neurological: Reports: Headache, Change in Speech. Denies: Dizziness, Paresthesia Psychiatric: Reports: No Symptoms. Denies: Confusion - Patient Data Vitals - Most Recent: Last Vital Signs Temp 98.9 F 10/07/17 04:37 Pulse 80 10/07/17 04:37 Resp 19 10/07/17 04:37 BP 142/76 H 10/07/17 04:37 Pulse Ox 96 10/07/17 04:37 Weight - Most Recent: 109.5 kg I&O - Last 24 Hours: Intake & Output 10/06/17 10/07/17 10/07/17 22:59 06:59 14:59 Intake Total 760 Output Total 500 Balance 260 Lab Results Last 24 Hours: Laboratory Results - last 24 hr 10/06/17 10/06/17 10/06/17 Range/Units 17:04 17:04 17:04 WBC 9.79 (4.0-11.0) K/uL RBC 3.42 L (4.30-5.90) M/uL Hgb 10.4 L (12.0-16.0) g/dL Hct 34.0 L (36.0-46.0) % MCV 99.4 H (80.0-98.0) fL MCH 30.4 (27.0-32.0) pg MCHC 30.6 L (31.0-37.0) g/dL RDW Std Deviation 62.7 H (28.0-62.0) fl RDW Coeff of Sandrine 17 H (11.0-15.0) % Plt Count 288 (150-400) K/uL MPV 9.50 (7.40-12.00) fL Neut % (Auto) 73.8 (48.0-80.0) % Lymph % (Auto) 18.2 (16.0-40.0) % [place] % (Auto) 5.6 (0.0-15.0) % Eos % (Auto) 1.8 (0.0-7.0) % Baso % (Auto) 0.6 (0.0-1.5) % Neut # (Auto) 7.2 H (1.4-5.7) K/uL Lymph # (Auto) 1.8 (0.6-2.4) K/uL [place] # (Auto) 0.6 (0.0-0.8) K/uL Eos # (Auto) 0.2 (0.0-0.7) K/uL Baso # (Auto) 0.1 (0.0-0.1) K/uL Add Manual Diff Neutrophils % (Manual) (48.0-80.0) % Band Neutrophils % % Lymphocytes % (Manual) (16.0-40.0) % Monocytes % (Manual) (0.0-15.0) % Eosinophils % (Manual) (0.0-7.0) % Basophils % (Manual) (0.0-1.5) % Nucleated RBC % 0.0 /100WBC Absolute Seg Neuts (1.4-5.7) Band Neutrophils # Lymphocytes # (Manual) (0.6-2.4) Monocytes # (Manual) (0.0-0.8) Eosinophils # (Manual) (0.0-0.7) Basophils # (Manual) (0.0-0.1) Nucleated RBCs # 0 K/uL INR 0.98 Sodium 140 (136-145) mmol/L Potassium 5.0 (3.5-5.1) mmol/L Chloride 104 (98-107) mmol/L Carbon Dioxide 33.2 H (21.0-32.0) mmol/L BUN 42 H (7.0-18.0) mg/dL Creatinine 2.2 H (0.6-1.0) mg/dL Est Cr Clr Drug Dosing TNP Estimated GFR (MDRD) 21.8 ml/min Glucose 101 (74-106) mg/dL Calcium 8.6 (8.5-10.1) mg/dL Magnesium (1.5-2.0) mg/dL Total Bilirubin 0.2 (0.2-1.0) mg/dL AST 21 (15-37) IU/L ALT 25 (14-63) IU/L Alkaline Phosphatase 70 (46-116) U/L Troponin I < 0.050 (0.000-0.056) ng/mL Total Protein 6.7 (6.4-8.2) g/dL Albumin 3.1 L (3.4-5.0) g/dL Globulin 3.6 H (2.0-3.5) g/dL Albumin/Globulin Ratio 0.9 L (1.3-2.8) TSH 3rd Generation 0.29 L (0.36-3.74) uIU/mL 10/07/17 10/07/17 Range/Units 05:05 05:05 WBC 8.56 (4.0-11.0) K/uL RBC 3.20 L (4.30-5.90) M/uL Hgb 9.8 L (12.0-16.0) g/dL Hct 32.1 L (36.0-46.0) % MCV 100.3 H (80.0-98.0) fL MCH 30.6 (27.0-32.0) pg MCHC 30.5 L (31.0-37.0) g/dL RDW Std Deviation 62.7 H (28.0-62.0) fl RDW Coeff of Sandrine 17 H (11.0-15.0) % Plt Count 280 (150-400) K/uL MPV 10.10 (7.40-12.00) fL Neut % (Auto) (48.0-80.0) % Lymph % (Auto) (16.0-40.0) % [place] % (Auto) (0.0-15.0) % Eos % (Auto) (0.0-7.0) % Baso % (Auto) (0.0-1.5) % Neut # (Auto) (1.4-5.7) K/uL Lymph # (Auto) (0.6-2.4) K/uL [place] # (Auto) (0.0-0.8) K/uL Eos # (Auto) (0.0-0.7) K/uL Baso # (Auto) (0.0-0.1) K/uL Add Manual Diff YES Neutrophils % (Manual) 66 (48.0-80.0) % Band Neutrophils % 8 % Lymphocytes % (Manual) 13 L (16.0-40.0) % Monocytes % (Manual) 6 (0.0-15.0) % Eosinophils % (Manual) 3 (0.0-7.0) % Basophils % (Manual) 4 H (0.0-1.5) % Nucleated RBC % 2.4 /100WBC Absolute Seg Neuts 5.6 (1.4-5.7) Band Neutrophils # 0.7 Lymphocytes # (Manual) 1.1 (0.6-2.4) Monocytes # (Manual) 0.5 (0.0-0.8) Eosinophils # (Manual) 0.3 (0.0-0.7) Basophils # (Manual) 0.3 H (0.0-0.1) Nucleated RBCs # 0 K/uL INR Sodium 138 (136-145) mmol/L Potassium 4.7 (3.5-5.1) mmol/L Chloride 103 (98-107) mmol/L Carbon Dioxide 30.2 (21.0-32.0) mmol/L BUN 38 H (7.0-18.0) mg/dL Creatinine 2.1 H (0.6-1.0) mg/dL Est Cr Clr Drug Dosing 19.44 Estimated GFR (MDRD) 23.0 ml/min Glucose 82 (74-106) mg/dL Calcium 8.3 L (8.5-10.1) mg/dL Magnesium 1.5 (1.5-2.0) mg/dL Total Bilirubin (0.2-1.0) mg/dL AST (15-37) IU/L ALT (14-63) IU/L Alkaline Phosphatase (46-116) U/L Troponin I (0.000-0.056) ng/mL Total Protein (6.4-8.2) g/dL Albumin (3.4-5.0) g/dL Globulin (2.0-3.5) g/dL Albumin/Globulin Ratio (1.3-2.8) TSH 3rd Generation (0.36-3.74) uIU/mL Med Orders - Current: Current Medications Albuterol/Ipratropium (Duoneb 3.0-0.5 Mg/3 Ml) 3 ml NEB Q4HRRT PRN PRN Reason: Shortness Of Breath/wheezing Aspirin (Aspirin) 300 mg RECTAL DAILY [facility] Last Admin: 10/07/17 01:01 Dose: 300 mg Atorvastatin Calcium (Lipitor) 40 mg PO BEDTIME [facility] Last Admin: 10/06/17 22:53 Dose: 40 mg Fluticasone/Salmeterol (Advair Diskus 250-50) 1 puff INH BID [facility] Last Admin: 10/06/17 23:53 Dose: 1 puff Sodium Chloride (Saline Flush) 10 ml FLUSH ASDIRECTED PRN PRN Reason: Keep Vein Open Sodium Chloride (Saline Flush) 2.5 ml FLUSH ASDIRECTED PRN PRN Reason: Keep Vein Open Sodium Chloride (Saline Flush) 10 ml FLUSH ASDIRECTED PRN PRN Reason: Keep Vein Open Sodium Chloride (Saline Flush) 2.5 ml FLUSH ASDIRECTED PRN PRN Reason: Keep Vein Open Discontinued Medications Aspirin (Aspirin) 325 mg PO ONETIME ONE Stop: 10/06/17 18:13 Last Admin: 10/06/17 18:41 Dose: Not Given Atorvastatin Calcium (Lipitor) 40 mg PO BEDTIME [facility] Hydrocortisone (Cortef) 10 mg PO ONETIME ONE Stop: 10/06/17 22:32 Last Admin: 10/06/17 23:46 Dose: 10 mg Lactated Ringer's (Ringers, Lactated) 1,000 mls @ 125 mls/hr IV ASDIRECTED [facility] Last Admin: 10/06/17 22:55 Dose: 125 mls/hr Lactated Ringer's (Ringers, Lactated) 1,000 mls @ 100 mls/hr IV ASDIRECTED [facility] - Exam General: Alert, Oriented, Cooperative, No Acute Distress Neck: Supple Lungs: Clear to Auscultation, Normal Respiratory Effort Cardiovascular: Regular Rate, Regular Rhythm GI/Abdominal Exam: Normal Bowel Sounds, Soft, Non-Tender, No Organomegaly, No Distention, No Abnormal Bruit, No Mass, Pelvis Stable Back Exam: Normal Inspection, Full Range of Motion Extremities: Normal Inspection, Normal Range of Motion, Non-Tender, Pedal Edema (+1 edema) Neurological: Strength Equal Bilateral, Sensation Intact, Cranial Nerves Intact. No: Normal Speech (garbled speech continues. Patient reports this is better) Psy/Mental Status: Alert, Normal Affect, Normal Mood - Problem List & Annotations (1) Expressive aphasia SNOMED Code(s): 961666157 Code(s): R47.01 - APHASIA Status: Acute Current Visit: Yes (2) Cerebrovascular accident (CVA) SNOMED Code(s): 789711423 Code(s): I63.9 - CEREBRAL INFARCTION, UNSPECIFIED Status: Suspected Current Visit: Yes (3) HTN (hypertension) SNOMED Code(s): 63800374 Code(s): I10 - ESSENTIAL (PRIMARY) HYPERTENSION Status: Chronic Current Visit: Yes Qualifiers: Hypertension type: essential hypertension Qualified Code(s): I10 - Essential (primary) hypertension (4) Hx of aneurysm SNOMED Code(s): 827300730 Code(s): Z86.79 - PERSONAL HISTORY OF OTHER DISEASES OF THE CIRCULATORY SYSTEM Status: Chronic Current Visit: Yes (5) Hypothyroidism SNOMED Code(s): 22467912 Code(s): E03.9 - HYPOTHYROIDISM, UNSPECIFIED Status: Chronic Current Visit: Yes (6) Adrenal insufficiency ([place]'s disease) SNOMED Code(s): 020007766 Code(s): E27.1 - PRIMARY ADRENOCORTICAL INSUFFICIENCY Status: Chronic Current Visit: No (7) History of nephrectomy SNOMED Code(s): 79365295161289 Code(s): Z90.5 - ACQUIRED ABSENCE OF KIDNEY Status: Chronic Current Visit : Yes - Problem List Review Problem List Initiated/Reviewed/Updated: Yes - My Orders Last 24 Hours: My Active Orders 10/07/17 08:17 Ang Head w wo Cont [MR] Urgent Ang Neck w wo Cont [MR] Urgent Brain w wo Cont [MR] Urgent 10/07/17 08:18 Echo 2D wo Cont [US] Urgent 04/25/18 08:21 GLYCOSYLATED HEMOGLOBIN,HGBA1C [CHEM] Routine LIPID PANEL [CHEM] Routine - Plan Plan:: This 72 year old female admitted for slurred speech suspected TIA or possible CVA 1. Slurred speech: Continues to have some slurred speech, greater than 24 hours since symptoms onset. Head CT last night revealed No evidence of an acute intracranial hemorrhage, mass effect or loss of poon-white differentiation. Atrophy, chronic ischemic and post surgical changes. 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 Post right frontotemporal craniotomy changes and aneurysm clips in the region of the right MCA. Will order MRI brain and MRA head and neck today. ECHO to be obtained as well as lipid panel, LDL 125, total cholesterol 211 HDL 51 and triglycerides 174 and A1c 6.1. Will encourage diet change with elevate A1c. Telemetry showing SR 60-80s no arrhythmia. Allow permissive HTN for now. ASA ordered, but patient is refusing this. Will speak with patient. Will also set up outpatient follow up with Neurology. Patient reports she has not seen neurology for awhile. 2. COPD exacerbation: No wheezing today, will decrease Solumderol to Q12hr and monitor. Continue Home inhalers and Duonebs for now. Will monitor. Wean oxygen as possible to RA. Has significant COPD, and currently undergoing testing with PCP, Dr Ibarra for oxygen at night due to hypoxia noted with sleeping. No hypoxia noted at last few clinic visits, per Dr Ibarra. She has been sating now 90s on RA. 3. [place]'s: Stable. Continue home Hydrocortisone dosing. Monitor. 4. HTN: Stable. Allowing permissive HTN for now. Will monitor. Hold medications. VTE: SCDs for now, will obtain MRI, consider starting Heparin after MRI. Dispo: 2-3 days pending improvement. Spoke with PCP, Dr Ibarra, aware of patient's admission and follow up treatment recommended with Neurology.
[2017-10-07] MEDS: Fluticasone/Salmeterol 250-50 MCG Inhalation Powder 14/Diskus INH SCH ×2 (09:14→20:14)
[2017-10-07] MEDS ORDERED: methylPREDNISolone Sodium Succinate 40 MG/1 ML SDV IVPUSH SCH (10:00)
[2017-10-07] MEDS: methylPREDNISolone Sodium Succinate 40 MG/1 ML SDV IVPUSH SCH ×2 (10:54→21:28)
--- NOTE | 2017-10-07 11:03 | CT ---
EXAM DATE: 10/06/17 PATIENT'S AGE: 72 Patient: DEAN MCLEOD Facility: [place], [place] Site . Site : 1945 Study: CT Head STROKE PROTOCOL [id number]/2018 5:08:37 PM Ordering Physician: Hilda Chappell Final Report: INDICATION: Slurred speech. Headache. Stroke protocol TECHNIQUE: CT head without contrast. COMPARISON: 10/12/2015 FINDINGS: Post right frontotemporal craniotomy changes and aneurysm clips in the region of the right MCA, are again seen. There is cerebral and cerebellar cortical atrophy. The ventricles demonstrate normal configuration and size for the patient`s age. There is no mass effect or midline shift. Foci of encephalomalacia are again seen in the inferior aspect of the right frontal lobe and medial aspect of the right temporal lobe. Chronic lacunar infarcts are again seen in the left internal and external capsules adjacent to the caudate head. White matter hypodensities are suggestive of chronic small vessel ischemic changes. There is no loss of poon-white differentiation. There is no evidence of an acute intracranial hemorrhage. A basilar tip aneurysm is again seen, measuring 1.1 x 0.7 centimeters on image 21. No acute calvarial fracture is seen. There is persistent opacification of the left sphenoid sinus and a mucosal retention cyst or polyp with mild adjacent mucosal thickening in the left maxillary sinus. The mastoid air cells are clear. The visualized orbits are stable. IMPRESSION: No evidence of an acute intracranial hemorrhage, mass effect or loss of poon- white differentiation. Atrophy, chronic ischemic and post surgical changes. 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 Paranasal sinus disease. The findings were communicated Dr. Stevens on 10/06/2014 at 5:22 p.m.. Dictated by Shahid Lara MD @ 10/06/2017 5:24:04 PM Dictated by: Shahid Lara MD @ 10/06/2017 17:24:10 (Electronic Signature) Report Signed by Proxy. NY[facility] LANG[facility]ISCH HOSPITALAntoinette
--- NOTE | 2017-10-07 11:04 | CR ---
EXAM DATE: 10/06/17 PATIENT'S AGE: 72 Patient: DEAN MCLEOD Facility: [place], [place] Site . Site : 1945 Study: XRay Chest [id number] 5:19:43 PM Ordering Physician: Doctor Lofton Final Report: INDICATION: Stroke TECHNIQUE: Chest 1 views COMPARISON: September 14, 2017 FINDINGS: Cardiovascular and mediastinum: Heart size and vasculature are normal in caliber and appearance. Lungs and pleural spaces: Lungs are clear. No sign of infiltrate or mass. No sign of pleural effusion. No pneumothorax. Bones and soft tissues: No significant findings. IMPRESSION: No acute findings and no significant changes from the prior exam. Dictated by Timothy Tejeda MD @ Oct 06 2017 5:54PM (Electronic Signature) Report Signed by Proxy. RICHARD
[2017-10-07] MEDS ORDERED: Calcium Carbonate 500 MG Tablet PO SCH (12:45)
[2017-10-07] MEDS ORDERED: Hydrocortisone 20 MG Tab PO SCH (16:00)
[2017-10-07] MEDS ORDERED: atorvaSTATin 40 MG Tab PO SCH ×2 (21:00)
[2017-10-08] MEDS ORDERED: Levothyroxine 75 MCG Tab PO SCH (05:00)
[2017-10-08] MEDS ORDERED: Hydrocortisone 20 MG Tab PO SCH (07:00)
[2017-10-08 08:04] VITALS: BP 135/106
[2017-10-08] MEDS ORDERED: Vitamin B Complex 1 EACH PO SCH (09:00)
[2017-10-08] MEDS ORDERED: Omeprazole 20 MG Cap.CR PO SCH (09:00)
--- NOTE | 2017-10-08 09:38 | PCM.DCSUM1 ---
Discharge Summary - Hospital Course Brief History: This 72-year-old female with a pmh of HTN, hypothyroidism, UTIs, brain aneurysm, COPD, and Dorado's disease who presented to the ED with complaints of speech slurring and speech changes that started about 2:58 AM 10/06. She reports that it started and she feels like it is getting worse which is why she came in. She is not having trouble swallowing and she is not having any arm or leg weakness. She has not had any falls with this. She has no chest pain no abdominal pain no nausea or vomiting but does complain of a frontal headache. Patient came in via triage with a family member. The patient tells triage that she has a history of strokes in the past but per the computer she has a history of the intracranial aneurysm in the last testing that I see is an MRI/MRA of the head done January 26, 2014 revealing the 10 x 7 mm fusiform aneurysmal dilatation of the basilar tip and aneurysmal clip within the right MCA distribution. According to the patient she had the one aneurysm clipped but the other one they were not able to do anything about. She does not have any neck pain currently. As for the oxygen she was discharged home with, she says that she has not had that for 2 weeks so she has not been using it. The patient also tells nursing that her left arm and her left leg seemed a little bit tingly but they are not weak. The patient again reiterates that all the symptoms started at 2:58 AM this morning. Upon asking further by nursing the patient says that she could not afford to get the oxygen at home which is why she is not using on a regular basis. In the ED WBC 9.79, BUN 42 Cr 2.2, which is baseline. Otherwise BMP WNL, troponin negative. TSH 0.29. CXR negative. EKG SR rate in the 60s. Head CT revealed no evidence of an acute intracranial hemorrhage, mass effect or loss of poon white differention. Atrophy, chronic ischemic and post surgical changes noted. A 1.1 centimeter basilar tip aneurysm again noted. She was admitted for TIA rule out CVA workup. PCP, Dr Ibarra. - Discharge Data Discharge Date: 10/08/17 Discharge Disposition: Home, Self-Care 01 Condition: Good - Discharge Diagnosis/Problem(s) (1) TIA (transient ischemic attack) SNOMED Code(s): 752811240 ICD Code: G45.9 - TRANSIENT CEREBRAL ISCHEMIC ATTACK, UNSPECIFIED Status: Acute Current Visit: Yes (2) HTN (hypertension) SNOMED Code(s): 51533324 ICD Code: I10 - ESSENTIAL (PRIMARY) HYPERTENSION Status: Chronic Current Visit: Yes Qualifiers: Hypertension type: essential hypertension Qualified Code(s): I10 - Essential (primary) hypertension (3) Hx of aneurysm SNOMED Code(s): 655138917 ICD Code: Z86.79 - PERSONAL HISTORY OF OTHER DISEASES OF THE CIRCULATORY SYSTEM Status: Chronic Current Visit: Yes (4) Hypothyroidism SNOMED Code(s): 64024671 ICD Code: E03.9 - HYPOTHYROIDISM, UNSPECIFIED Status: Chronic Current Visit: Yes (5) Adrenal insufficiency (Melvin's disease) SNOMED Code(s): 487901955 ICD Code: E27.1 - PRIMARY ADRENOCORTICAL INSUFFICIENCY Status: Chronic Current Visit: No (6) History of nephrectomy SNOMED Code(s): 87862005386132 ICD Code: Z90.5 - ACQUIRED ABSENCE OF KIDNEY Status: Chronic Current Visit: Yes - Patient Summary/Data Consults: Consultations 10/06/17 22:02 PT Evaluation and Treatment [CONS] Routine - Patient Instructions Diet: Heart Healthy Diet Activity: As Tolerated, No Strenuous Activities, Rest and Relax Today Driving: Do Not Drive Showering/Bathing: May Shower Notify Provider of: Fever, Increased Pain, Swelling and Redness, Drainage, Nausea and/or Vomiting - Discharge Plan Prescriptions/Med Rec: Aspirin 81 mg PO DAILY #30 tab.chew Home Medications: Home Meds Omeprazole 40 mg PO DAILY 01/09/14 [History] Hydrocortisone 10 mg PO 1600 07/23/14 [History] Hydrocortisone 15 mg PO 0700 07/23/14 [History] Propranolol [Inderal] 40 mg PO BEDTIME 03/14/16 [History] Calcium Carbonate [Calcium] 500 mg PO ASDIRECTED 12/18/16 [History] Vitamin B Complex 1 each PO DAILY 12/18/16 [History] Levothyroxine [Synthroid] 75 mcg PO 0500 09/14/17 [History] Albuterol [IJD: Albuterol HFA] 1 puff .XX Q4H PRN 30 Days #8 gm 09/15/17 [Rx] Fluticasone/Salmeterol [Advair 250-50] 1 puff INH BID 30 Days #1 diskus [Rx] Aspirin 81 mg PO DAILY #30 tab.chew 10/08/17 [Rx] Referrals: Tabby Lucas MD [Physician] - 11/12/17 2:15 pm Gordy Ibarra MD [Primary Care Provider] - - Discharge Summary/Plan Comment DC Time >30 min.: No Discharge Summary/Plan Comment: Discharge Diagnoses: TIA HTN Hx brain aneurysm clipping 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 Slurred and garbled speech improved within 24 hours. ECHO is pending upon discharge. Telemetry revealed only SR, no arrhythmias. MRI brain and MRA head and neck obtained which revealed, no acute infarction within the limitations of susceptibility artifact, Fusiform aneurysmal dilatation of the basilar tip measuring 12 x 9 mm has slightly increased in size compared to the MRA dated 01/26/2014, Postsurgical changes secondary to prior aneurysm clipping in the region of the right middle cerebral artery bifurcation. Artifact limits evaluation for residual/recurrent aneurysm, though there is suggested dilatation of the right middle cerebral artery bifurcation flow void. CTA could be obtained for further evaluation, No hemodynamically significant stenosis of the major intracranial or cervical arteries, [id number] chronic microvascular ischemic disease with superimposed chronic lacunar infarctions in the bilateral basal ganglia and right frontal centrum semiovale, Small foci of susceptibility in the left thalamus and left internal capsule may represent small chronic microhemorrhages and can be seen in the setting of hypertension, Opacification of the left sphenoid sinus. I discussed the slight increase in size of dilatation of basilar tip with Dr Vasquez, neurosurgeon, At [facility], he recommended nothing acutely or emergently needs to occur, but she will need to see a Endovascular neurosurgeon in the near future. He reports the closest he is aware of is [facility] in [place], [place]. He recommended good BP control, cholesterol control and ASA. Cholesterol is elevated Triglycerides 174, Total 211, LDL 125, HDL 51. She was started on Atorvastatin 80 mg daily. She was highly encouraged to take ASA daily, which she has intermittently refused here and daughter has reported she was told to never take that by PCP. I spoke with Dr Ibarra, PCP who agrees she SHOULD be taking ASA. I spoke with Patricia today and highly encouraged at least an 81 mg baby aspirin daily, which she agreed she could take and "I have a full bottle at home". She was also encouraged to watch her diet due to elevated cholesterol as well as A1c at 6.1, which is prediabetic. She reports gaining a lot of weight over the winter and has started watching her diet. She was encouraged to limited carbs and sweets and eat more vegetables and lean meats and fish. She was given increase dose of steroids during her stay due to some increased wheezing. She is noted to be better today. She has slight leukocytosis, 12,000, but likely secondary to this increase in steroids. No signs of infection. She is to continue all home medications for COPD and continue with follow up with PCP for oxygen at night time. Patricia is very eager to be discharged home today. She will have follow up with PCP, Dr Ibarra, Dr Lucas and endovascular neurosurgeon in [place]. She was notified of this follow up being recommended by Dr Vasquez. She reports she will speak with her daughter and work on getting to this appointment. She is to return to ED or clinic if concerns should arise. - General Info Date of Service: 10/08/17 Admission Dx/Problem (Free Text: Admission Diagnosis/Problem Admission Diagnosis/Problem slurred speech Subjective Update: Feeling much better today and asking for discharge home. No concerns. Slurred speech is gone. No chest pain or SOB. No headaches or focal neurologic deficits. Functional Status: Reports: Pain Controlled, Tolerating Diet, Ambulating, Urinating - Review of Systems General: Reports: No Symptoms. Denies: Fever, Weakness, Fatigue, Malaise HEENT: Reports: No Symptoms. Denies: Headaches, Sore Throat Pulmonary: Reports: No Symptoms. Denies: Shortness of Breath, Cough, Sputum, Hemoptysis Cardiovascular: Reports: No Symptoms. Denies: Chest Pain, Edema Gastrointestinal: Reports: No Symptoms. Denies: Abdominal Pain, Nausea, Vomiting Genitourinary: Reports: No Symptoms Musculoskeletal: Reports: No Symptoms Skin: Reports: No Symptoms Neurological: Reports: No Symptoms Psychiatric: Reports: No Symptoms - Patient Data Vitals - Most Recent: Last Vital Signs Temp 98.8 F 10/08/17 08:00 Pulse 98 10/08/17 08:00 Resp 20 10/08/17 08:00 BP 135/106 H 10/08/17 08:00 Pulse Ox 94 L 10/08/17 08:00 Weight - Most Recent: 109.5 kg I&O - Last 24 hours: Intake & Output 10/07/17 10/08/17 10/08/17 22:59 06:59 14:59 Intake Total 520 436 Output Total 800 1050 Balance -280 -614 Lab Results - Last 24 hrs: Laboratory Results - last 24 hr 10/08/17 10/08/17 Range/Units 05:50 05:50 WBC 12.62 H (4.0-11.0) K/uL RBC 3.31 L (4.30-5.90) M/uL Hgb 9.9 L (12.0-16.0) g/dL Hct 31.5 L (36.0-46.0) % MCV 95.2 (80.0-98.0) fL MCH 29.9 (27.0-32.0) pg MCHC 31.4 (31.0-37.0) g/dL RDW Std Deviation 56.8 (28.0-62.0) fl RDW Coeff of Sandrine 16 H (11.0-15.0) % Plt Count 291 (150-400) K/uL MPV 9.60 (7.40-12.00) fL Neut % (Auto) 91.3 H (48.0-80.0) % Lymph % (Auto) 5.5 L (16.0-40.0) % [place]rowers % (Auto) 3.1 (0.0-15.0) % Eos % (Auto) 0.0 (0.0-7.0) % Baso % (Auto) 0.1 (0.0-1.5) % Neut # (Auto) 11.5 H (1.4-5.7) K/uL Lymph # (Auto) 0.7 (0.6-2.4) K/uL [place]row[place] # (Auto) 0.4 (0.0-0.8) K/uL Eos # (Auto) 0.0 (0.0-0.7) K/uL Baso # (Auto) 0.0 (0.0-0.1) K/uL Nucleated RBC % 0.0 /100WBC Nucleated RBCs # 0 K/uL Sodium 138 (136-145) mmol/L Potassium 4.8 (3.5-5.1) mmol/L Chloride 103 (98-107) mmol/L Carbon Dioxide 32.5 H (21.0-32.0) mmol/L BUN 37 H (7.0-18.0) mg/dL Creatinine 1.9 H (0.6-1.0) mg/dL Est Cr Clr Drug Dosing 21.49 mL/min Estimated GFR (MDRD) 25.8 ml/min Glucose 169 H (74-106) mg/dL Calcium 8.5 (8.5-10.1) mg/dL Magnesium 1.6 (1.5-2.0) mg/dL Med Orders - Current: Current Medications Albuterol/Ipratropium (Duoneb 3.0-0.5 Mg/3 Ml) 3 ml NEB Q4HRRT PRN PRN Reason: Shortness Of Breath/wheezing Last Admin: 10/08/17 01:19 Dose: 3 ml Aspirin (Aspirin) 300 mg RECTAL DAILY [facility] Last Admin: 10/07/17 09:32 Dose: Not Given Atorvastatin Calcium (Lipitor) 80 mg PO BEDTIME [facility] Last Admin: 10/07/17 21:25 Dose: 80 mg Calcium Carbonate/Glycine (Oyster Shell Calcium) 1 mg PO ASDIRECTED [facility] Hydrocortisone (Cortef) 10 mg PO 1600 [facility] Last Admin: 10/07/17 16:10 Dose: 10 mg Hydrocortisone (Cortef) 15 mg PO 0700 [facility] Last Admin: 10/08/17 06:00 Dose: 15 mg Levothyroxine Sodium (Levothyroxine) 75 mcg PO 0500 [facility] Last Admin: 10/08/17 05:56 Dose: 75 mcg Methylprednisolone Sodium Succinate (Solu-Medrol) 40 mg IVPUSH Q12H [facility] Last Admin: 10/07/17 21:28 Dose: 40 mg Omeprazole (Omeprazole) 40 mg PO DAILY [facility] Vitamin B Complex 1 (Each) 1 each PO DAILY [facility] Fluticasone/Salmeterol (Advair Diskus 250-50) 1 puff INH BID [facility] Last Admin: 10/07/17 20:14 Dose: 1 puff Sodium Chloride (Saline Flush) 10 ml FLUSH ASDIRECTED PRN PRN Reason: Keep Vein Open Sodium Chloride (Saline Flush) 2.5 ml FLUSH ASDIRECTED PRN PRN Reason: Keep Vein Open Sodium Chloride (Saline Flush) 10 ml FLUSH ASDIRECTED PRN PRN Reason: Keep Vein Open Sodium Chloride (Saline Flush) 2.5 ml FLUSH ASDIRECTED PRN PRN Reason: Keep Vein Open Discontinued Medications Aspirin (Aspirin) 325 mg PO ONETIME ONE Stop: 10/06/17 18:13 Last Admin: 10/06/17 18:41 Dose: Not Given Atorvastatin Calcium (Lipitor) 40 mg PO BEDTIME ABELINO Atorvastatin Calcium (Lipitor) 40 mg PO BEDTIME ABELINO Last Admin: 10/06/17 22:53 Dose: 40 mg Hydrocortisone (Cortef) 10 mg PO ONETIME ONE Stop: 10/06/17 22:32 Last Admin: 10/06/17 23:46 Dose: 10 mg Lactated Ringer's (Ringers, Lactated) 1,000 mls @ 125 mls/hr IV ASDIRECTED ABELINO Last Admin: 10/06/17 22:55 Dose: 125 mls/hr Lactated Ringer's (Ringers, Lactated) 1,000 mls @ 100 mls/hr IV ASDIRECTED ABELINO Methylprednisolone Sodium Succinate (Solu-Medrol) 40 mg IVPUSH Q6H [facility] Last Admin: 10/07/17 11:15 Dose: Not Given - Exam General: Reports: Alert, Oriented, Cooperative, No Acute Distress Neck: Reports: Supple Lungs: Reports: Normal Respiratory Effort, Wheezing (scant upper lobe exp wheezing) Cardiovascular: Reports: Regular Rate, Regular Rhythm GI/Abdominal Exam: Normal Bowel Sounds, Soft, Non-Tender, No Organomegaly, No Distention, No Abnormal Bruit, No Mass, Pelvis Stable Back Exam: Reports: Normal Inspection, Full Range of Motion Extremities: Normal Inspection, Normal Range of Motion, Non-Tender, No Pedal Edema, Normal Capillary Refill Neurological: Reports: No New Focal Deficit, Normal Gait, Normal Speech Psy/Mental Status: Reports: Alert, Normal Affect, Normal Mood
[2017-10-08] MEDS: Aspirin 300 MG Supp RECTAL SCH (09:55)
[2017-10-08] MEDS: methylPREDNISolone Sodium Succinate 40 MG/1 ML SDV IVPUSH SCH (09:55)
[2017-10-08] MEDS: Fluticasone/Salmeterol 250-50 MCG Inhalation Powder 14/Diskus INH SCH (09:58)
--- NOTE | 2017-10-08 13:34 | MR ---
EXAM DATE: 10/06/17 PATIENT'S AGE: 72 Patient: DEAN MCLEOD Facility: [place], [place] Site . Site : 1945 Study: MRI Head Angio [id number]/2018 6:22:59 PM Ordering Physician: Nick Xie Final Report: INDICATION: Aphasia. TECHNIQUE: MRI brain: Multiplanar multisequence MR images were obtained of the brain without administration of intravenous contrast. MRA head: 3D [id number] images were obtained through the kake of Touss[place]. MRA neck: 2D and 3D [id number] MRA images were obtained through the neck. COMPARISON: CT brain 10/06/2017, MRA head 01/26/2014. 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 Susceptibility artifact secondary to the aneurysm clip limits evaluation of adjacent structures, particularly on the diffusion-weighted sequence. Within this limitation, no areas of diffusion restriction are identified to suggest acute infarction. Mild confluent T2 FLAIR hyperintensity in the right subinsular region and right frontal operculum may represent postsurgical sequelae. Suggested dilatation of the right middle cerebral artery bifurcation flow-void on T2 images. There is prominence of the ventricles and sulci compatible with mild diffuse cerebral volume loss. Scattered and patchy foci of T2 FLAIR hyperintensity within the supratentorial white matter and cassi are nonspecific, though favored to represent sequelae of [id number] chronic microvascular ischemic disease. Superimposed chronic lacunar infarctions within the right frontal centrum semiovale and bilateral basal ganglia. Mild left-sided wallerian degeneration. Small foci of susceptibility in the left thalamus and posterior limb of left internal capsule may represent small chronic microhemorrhages. The globes are symmetric in size. Small retention cyst or polyp in and mild mucosal thickening in the left maxillary sinus. The left sphenoid sinus is opacified. Trace fluid in left mastoid air cells. MRA head: Susceptibility artifact secondary to an aneurysm clip in the region of the right middle cerebral artery bifurcation limits evaluation for residual or recurrent aneurysm. The major vessels of the anterior circulation, including the internal carotid, middle cerebral, anterior cerebral arteries are patent without hemodynamically significant stenosis within the limitations of susceptibility artifact. Anterior communicating artery is visualized. The major vessels of the posterior circulation including the vertebral, basilar , superior cerebellar, and posterior cerebral arteries are patent without hemodynamically significant stenosis. 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 The vertebral arteries are codominant. The origin of the right posterior inferior cerebellar artery is identified. MRA neck: Noncontrast technique limits evaluation. There is a 3 vessel aortic arch. Tortuosity of the proximal right common carotid artery, as well as the V2 segments of the vertebral arteries. No hemodynamically significant stenosis of the great vessels arising from the aortic arch, or the common carotid, internal carotid, external carotid, or vertebral arteries. IMPRESSION: 1. No acute infarction within the limitations of susceptibility artifact. 2. 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 3. Postsurgical changes secondary to prior aneurysm clipping in the region of the right middle cerebral artery bifurcation. Artifact limits evaluation for residual/recurrent aneurysm, though there is suggested dilatation of the right middle cerebral artery bifurcation flow void. CTA could be obtained for further evaluation. 4. No hemodynamically significant stenosis of the major intracranial or cervical arteries. 5. [id number] chronic microvascular ischemic disease with superimposed chronic lacunar infarctions in the bilateral basal ganglia and right frontal centrum semiovale. 6. Small foci of susceptibility in the left thalamus and left internal capsule may represent small chronic microhemorrhages and can be seen in the setting of hypertension. 7. Opacification of the left sphenoid sinus. Dictated by Hebert Fortune MD @ Oct 07 2017 6:57PM (Electronic Signature) Report Signed by Proxy. RICHARD
--- NOTE | 2017-10-08 13:35 | MR ---
EXAM DATE: 10/06/17 PATIENT'S AGE: 72 Patient: DEAN MCLEOD Facility: [place], [place] Site . Site : 1945 Study: MRI Head [id number]/2018 6:23:53 PM Ordering Physician: Nick Xie Final Report: INDICATION: Aphasia. TECHNIQUE: MRI brain: Multiplanar multisequence MR images were obtained of the brain without administration of intravenous contrast. MRA head: 3D [id number] images were obtained through the [place]. MRA neck: 2D and 3D [id number] MRA images were obtained through the neck. COMPARISON: CT brain 10/06/2017, MRA head 01/26/2014. 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 Susceptibility artifact secondary to the aneurysm clip limits evaluation of adjacent structures, particularly on the diffusion-weighted sequence. Within this limitation, no areas of diffusion restriction are identified to suggest acute infarction. Mild confluent T2 FLAIR hyperintensity in the right subinsular region and right frontal operculum may represent postsurgical sequelae. Suggested dilatation of the right middle cerebral artery bifurcation flow-void on T2 images. There is prominence of the ventricles and sulci compatible with mild diffuse cerebral volume loss. Scattered and patchy foci of T2 FLAIR hyperintensity within the supratentorial white matter and cassi are nonspecific, though favored to represent sequelae of [id number] chronic microvascular ischemic disease. Superimposed chronic lacunar infarctions within the right frontal centrum semiovale and bilateral basal ganglia. Mild left-sided wallerian degeneration. Small foci of susceptibility in the left thalamus and posterior limb of left internal capsule may represent small chronic microhemorrhages. The globes are symmetric in size. Small retention cyst or polyp in and mild mucosal thickening in the left maxillary sinus. The left sphenoid sinus is opacified. Trace fluid in left mastoid air cells. MRA head: Susceptibility artifact secondary to an aneurysm clip in the region of the right middle cerebral artery bifurcation limits evaluation for residual or recurrent aneurysm. The major vessels of the anterior circulation, including the internal carotid, middle cerebral, anterior cerebral arteries are patent without hemodynamically significant stenosis within the limitations of susceptibility artifact. Anterior communicating artery is visualized. The major vessels of the posterior circulation including the vertebral, basilar , superior cerebellar, and posterior cerebral arteries are patent without hemodynamically significant stenosis. 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 The vertebral arteries are codominant. The origin of the right posterior inferior cerebellar artery is identified. MRA neck: Noncontrast technique limits evaluation. There is a 3 vessel aortic arch. Tortuosity of the proximal right common carotid artery, as well as the V2 segments of the vertebral arteries. No hemodynamically significant stenosis of the great vessels arising from the aortic arch, or the common carotid, internal carotid, external carotid, or vertebral arteries. IMPRESSION: 1. No acute infarction within the limitations of susceptibility artifact. 2. 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 3. Postsurgical changes secondary to prior aneurysm clipping in the region of the right middle cerebral artery bifurcation. Artifact limits evaluation for residual/recurrent aneurysm, though there is suggested dilatation of the right middle cerebral artery bifurcation flow void. CTA could be obtained for further evaluation. 4. No hemodynamically significant stenosis of the major intracranial or cervical arteries. 5. Oera-qb-gshlnxrz chronic microvascular ischemic disease with superimposed chronic lacunar infarctions in the bilateral basal ganglia and right frontal centrum semiovale. 6. Small foci of susceptibility in the left thalamus and left internal capsule may represent small chronic microhemorrhages and can be seen in the setting of hypertension. 7. Opacification of the left sphenoid sinus. Dictated by Hebert Fortune MD @ Oct 07 2017 6:31PM (Electronic Signature) Report Signed by Proxy. RICHARD
--- NOTE | 2017-10-08 13:36 | MR ---
EXAM DATE: 10/06/17 PATIENT'S AGE: 72 Patient: DEAN MCLEOD Facility: [place], [place] Site . Site : 1945 Study: MRI Neck Angio Angio [id number]/25/2018 6:26:48 PM Ordering Physician: Nick Xie Final Report: INDICATION: Aphasia. TECHNIQUE: MRI brain: Multiplanar multisequence MR images were obtained of the brain without administration of intravenous contrast. MRA head: 3D [id number]-hg-[id number] images were obtained through the [place]. MRA neck: 2D and 3D ayrj-pg-cynvid MRA images were obtained through the neck. COMPARISON: CT brain 10/06/2017, MRA head 01/26/2014. 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 Susceptibility artifact secondary to the aneurysm clip limits evaluation of adjacent structures, particularly on the diffusion-weighted sequence. Within this limitation, no areas of diffusion restriction are identified to suggest acute infarction. Mild confluent T2 FLAIR hyperintensity in the right subinsular region and right frontal operculum may represent postsurgical sequelae. Suggested dilatation of the right middle cerebral artery bifurcation flow-void on T2 images. There is prominence of the ventricles and sulci compatible with mild diffuse cerebral volume loss. Scattered and patchy foci of T2 FLAIR hyperintensity within the supratentorial white matter and cassi are nonspecific, though favored to represent sequelae of [id number]-pm-rbucxpqd chronic microvascular ischemic disease. Superimposed chronic lacunar infarctions within the right frontal centrum semiovale and bilateral basal ganglia. Mild left-sided wallerian degeneration. Small foci of susceptibility in the left thalamus and posterior limb of left internal capsule may represent small chronic microhemorrhages. The globes are symmetric in size. Small retention cyst or polyp in and mild mucosal thickening in the left maxillary sinus. The left sphenoid sinus is opacified. Trace fluid in left mastoid air cells. MRA head: Susceptibility artifact secondary to an aneurysm clip in the region of the right middle cerebral artery bifurcation limits evaluation for residual or recurrent aneurysm. The major vessels of the anterior circulation, including the internal carotid, middle cerebral, anterior cerebral arteries are patent without hemodynamically significant stenosis within the limitations of susceptibility artifact. Anterior communicating artery is visualized. The major vessels of the posterior circulation including the vertebral, basilar , superior cerebellar, and posterior cerebral arteries are patent without hemodynamically significant stenosis. 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 The vertebral arteries are codominant. The origin of the right posterior inferior cerebellar artery is identified. MRA neck: Noncontrast technique limits evaluation. There is a 3 vessel aortic arch. Tortuosity of the proximal right common carotid artery, as well as the V2 segments of the vertebral arteries. No hemodynamically significant stenosis of the great vessels arising from the aortic arch, or the common carotid, internal carotid, external carotid, or vertebral arteries. IMPRESSION: 1. No acute infarction within the limitations of susceptibility artifact. 2. 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 3. Postsurgical changes secondary to prior aneurysm clipping in the region of the right middle cerebral artery bifurcation. Artifact limits evaluation for residual/recurrent aneurysm, though there is suggested dilatation of the right middle cerebral artery bifurcation flow void. CTA could be obtained for further evaluation. 4. No hemodynamically significant stenosis of the major intracranial or cervical arteries. 5. Jfrf-pm-qbdemnbb chronic microvascular ischemic disease with superimposed chronic lacunar infarctions in the bilateral basal ganglia and right frontal centrum semiovale. 6. Small foci of susceptibility in the left thalamus and left internal capsule may represent small chronic microhemorrhages and can be seen in the setting of hypertension. 7. Opacification of the left sphenoid sinus. Dictated by Hebert Fortune MD @ Oct 07 2017 6:58PM (Electronic Signature) Report Signed by Proxy. RICHARD
--- NOTE | 2017-10-09 18:25 | ECHO ---
The echocardiogram report can be seen in this patient's EMR (electronic medical record) in the Reports section. The echocardiogram report has also been scanned into PACS and can be seen there. RICHARD
== END 2017-10-08 14:40 | disposition home or self-care (01) | DRG 69 ==
LOC: MW.ED 16:40 → MW.MS 19:33
PROVIDERS: ADMIT Internal Medicine; ATTEND Internal Medicine
DX: R47.01 Aphasia (principal); R20.2 Paresthesia of skin; G45.9 Transient cerebral ischemic attack, unspecified; I67.1 Cerebral aneurysm, nonruptured; E27.1 Primary adrenocortical insufficiency; J44.1 Chronic obstructive pulmonary disease with (acute) exacerbation; Z87.891 Personal history of nicotine dependence; Z86.73 Personal history of transient ischemic attack (TIA), and cerebral infarction without residual deficits; R73.03 Prediabetes; K25.9 Gastric ulcer, unspecified as acute or chronic, without hemorrhage or perforation; I10 Essential (primary) hypertension; E03.9 Hypothyroidism, unspecified; E78.5 Hyperlipidemia, unspecified; F17.200 Nicotine dependence, unspecified, uncomplicated; Z86.79 Personal history of other diseases of the circulatory system; Z90.5 Acquired absence of kidney; Z88.0 Allergy status to penicillin; Z88.8 Allergy status to other drugs, medicaments and biological substances; Z79.899 Other long term (current) drug therapy; R09.02 Hypoxemia
CPT/HCPCS: 36415; 70450; 70450-26; 70544; 70544-26; 70547; 70547-26; 70551; 70551-26; 71045; 71045-26; 80048; 80053; 80061; 83036; 83735; 84443; 84484; 85025; 85610; 93306; 94640; 97161-GP; 99284; 99285-25; A9270-GY; J2920; J7120

== ENCOUNTER 2017-12-08 18:13 | Emergency (ER) | payer MEDICARE, OTHER ==
--- NOTE | 2017-12-08 18:22 | EDM.PDOC ---
ED HPI GENERAL MEDICAL PROBLEM - General Chief Complaint: Lower Extremity Injury/Pain Stated Complaint: LEFT BIG TOE NAIL CUT Time Seen by Provider: 12/08/17 18:14 Source of Information: Reports: Patient History Limitations: Reports: No Limitations - History of Present Illness INITIAL COMMENTS - FREE TEXT/NARRATIVE: History of present illness: []Patient shortly ripped off her toenail after it got caught in her opposite pant leg. Review of systems: As per history of present illness and below otherwise all systems reviewed and negative. Past medical history: As per history of present illness and as reviewed below otherwise noncontributory. Surgical history: As per history of present illness and as reviewed below otherwise noncontributory. Social history: No reported history of drug or alcohol abuse. Family history: As per history of present illness and as reviewed below otherwise noncontributory. Physical exam: General: Well developed, well nourished in NAD HEENT: Atraumatic, normocephalic, pupils reactive, negative for conjunctival pallor or scleral icterus, mucous membranes moist, throat clear, neck supple, nontender, trachea midline. Lungs: Clear to auscultation, breath sounds equal bilaterally, chest nontender. Heart: S1S2, regular, negative for clicks, rubs, or JVD. Abdomen: Soft, nondistended, nontender. Negative for masses or hepatosplenomegaly. Negative for costovertebral tenderness. Pelvis: Stable nontender. Genitourinary: Deferred. Rectal: Deferred. Extremities: Left great toe with partially avulsed toenail attached distal lateral corner, toenail is grossly thickened and completely infected with fungus. negative for cords or calf pain. Neurovascular unremarkable. Neuro: Awake, alert, oriented. Cranial nerves II through XII unremarkable. Cerebellum unremarkable. Motor and sensory unremarkable throughout. Exam nonfocal. Diagnostics: [] Therapeutics: []Toenail removed completely and tolerated well Impression: []Toenail avulsion Plan: []Tylenol or Motrin for pain. Bacitracin to toenail bed follow-up with podiatry as needed Definitive disposition and diagnosis as appropriate pending reevaluation and review of above. - Related Data Allergies Allergy/AdvReac Type Severity Reaction Status Date / Time egg Allergy Mild Nausea Verified 12/08/17 18:28 codeine Allergy Rash Verified 12/08/17 18:28 diazepam [From Valium] Allergy Rash Verified 12/08/17 18:28 morphine Allergy Agitation Verified 12/08/17 18:28 Penicillins Allergy Other Verified 12/08/17 18:28 Home Meds: Home Meds Omeprazole 40 mg PO DAILY 01/09/14 [History] Hydrocortisone 10 mg PO 1600 07/23/14 [History] Hydrocortisone 15 mg PO 0700 07/23/14 [History] Propranolol [Inderal] 40 mg PO BEDTIME 03/14/16 [History] Calcium Carbonate [Calcium] 500 mg PO ASDIRECTED 12/18/16 [History] Vitamin B Complex 1 each PO DAILY 12/18/16 [History] Levothyroxine [Synthroid] 75 mcg PO 0500 09/14/17 [History] Albuterol [IJD: Albuterol HFA] 1 puff .XX Q4H PRN 30 Days #8 gm 09/15/17 [Rx] Fluticasone/Salmeterol [Advair 250-50] 1 puff INH BID 30 Days #1 diskus [Rx] Aspirin 81 mg PO DAILY #30 tab.chew 10/08/17 [Rx] Past Medical History HEENT History: Reports: Impaired Vision Cardiovascular History: Reports: Hypertension Other Cardiovascular History: hypotension Respiratory History: Reports: SOB Gastrointestinal History: Reports: None Genitourinary History: Reports: None PATIENT SUPPORT REPRESENTATIVE History: Reports: Musculoskeletal History: Reports: None Neurological History: Reports: Cerebral Aneurysms, CVA, Other (See Below) Other Neuro History: brain tumor Psychiatric History: Reports: None 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, Hypothyroidism Hematologic History: Reports: None Immunologic History: Reports: None Oncologic (Cancer) History: Reports: Other (See Below) Other Oncologic History: brain tumors, treated with radiation Dermatologic History: Reports: None - Infectious Disease History Infectious Disease History: Reports: Chicken Pox, Measles, Mumps Other Infectious Disease History: childhood - Past Surgical History HEENT Surgical History: Reports: Other (See Below) Other HEENT Surgeries/Procedures: benign brain tumors removed in [id number] Female Surgical History: Reports: Hysterectomy, Nephrectomy Other Female Surgeries/Procedures: only one kidney Social & Family History - Family History Family Medical History: Noncontributory - Caffeine Use Caffeine Use: Reports: Coffee, Tea Review of Systems - Review of Systems Review Of Systems: See Below (See history of present illness) ED EXAM, GENERAL - Physical Exam Exam: See Below (See history of present illness) Course - Vital Signs Last Recorded V/S: Last Vital Signs Temp 96.8 F 12/08/17 18:30 Pulse 80 12/08/17 18:30 Resp 16 12/08/17 18:30 BP 149/70 H 12/08/17 18:30 Pulse Ox 93 L 12/08/17 18:30 - Orders/Labs/Meds Meds: Medications Discontinued Medications Generic Name Dose Route Start Last Admin Trade Name Duy PRN Reason Stop Dose Admin Bupivacaine HCl 10 ml 12/08/17 18:24 Sensorcaine-Mpf 0.5% INJECT 12/08/17 18:25 ONETIME ONE Lidocaine HCl 5 ml 12/08/17 18:24 Xylocaine-Mpf 1% INJECT 12/08/17 18:25 ONETIME ONE Departure - Departure Time of Disposition: 18:36 Disposition: Home, Self-Care 01 Condition: Good Clinical Impression: Avulsion of toenail of left foot - Discharge Information Referrals: Gordy Ibarra MD [Primary Care Provider] - Forms: ED Department Discharge Additional Instructions: The following information is given to patients seen in the emergency department who are being discharged to home. This information is to outline your options for follow-up care. We provide all patients seen in our emergency department with a follow-up referral. The need for follow-up, as well as the timing and circumstances, are variable depending upon the specifics of your emergency department visit. If you don't have a primary care physician on staff, we will provide you with a referral. We always advise you to contact your personal physician following an emergency department visit to inform them of the circumstance of the visit and for follow-up with them and/or the need for any referrals to a consulting specialist. The emergency department will also refer you to a specialist when appropriate. This referral assures that you have the opportunity for follow-up care with a specialist. All of these measure are taken in an effort to provide you with optimal care, which includes your follow-up. Under all circumstances we always encourage you to contact your private physician who remains a resource for coordinating your care. When calling for follow-up care, please make the office aware that this follow-up is from your recent emergency room visit. If for any reason you are refused follow-up, please contact the [facility] Emergency Department at and asked to speak to the emergency department charge nurse. Soap and water to clean wound use antibiotic ointment and keep it covered with Band-Aid.
[2017-12-08] MEDS ORDERED: Bupivacaine 0.5% 10 ML SDV INJECT ONE (18:24)
[2017-12-08 18:32] VITALS: BP 149/70
[2017-12-08] MEDS ORDERED: Bacitracin Oint 1 GM U/D Packet TOP ONE (18:37)
== END 2017-12-08 18:53 | disposition home or self-care (01) ==
LOC: MW.ED 18:13
DX: S91.202A Unspecified open wound of left great toe with damage to nail, initial encounter (principal); I10 Essential (primary) hypertension; Z88.5 Allergy status to narcotic agent; Z91.012 Allergy to eggs; Z88.0 Allergy status to penicillin; Z79.899 Other long term (current) drug therapy; Z79.82 Long term (current) use of aspirin; Z86.73 Personal history of transient ischemic attack (TIA), and cerebral infarction without residual deficits; W23.0XXA Caught, crushed, jammed, or pinched between moving objects, initial encounter
CPT/HCPCS: 11730; 99283